=== PATIENT | female | born 1950 | race Caucasian/White ===

== ENCOUNTER 2020-01-24 13:57 | Emergency (ER) | payer MEDICARE ==
--- NOTE | 2020-01-24 15:09 | EDM.PDOC ---
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 Roa is a 69 YO female that presents to the ED for a injury to the left forehead. She was working in the yard yesterday when family members began playing by sliding a hanging zoe flower basket across a clothes line. Flower pot struck her just above her left eye. Immediately after being injured she experienced pain in the effected location, had blurred vision, and was "dazed". Today, she complains of aching pain in the forehead radiating down to the left ear and a "cloudy vision in left eye." History of injury to forehead one year ago when she fell getting out of bed and struck a window sill. This incidence caused a large hematoma and a fracture in her skull. Provider at that time told her to seek medical attention if another injury to head occurred. Denies loss of consciousness at any time since the recent injury, nausea, vomiting, change in hearing, tinnitus, loss of vision, headache, paresthesia, or numbness. Has taken Advil for pain relief. (Mandeep Harrell) - Related Data Allergies Allergy/AdvReac Type Severity Reaction Status Date / Time No Known Allergies Allergy Verified 01/24/20 14:36 Home Meds: Home Meds Acetaminophen/HYDROcodone [[place] 325-7.5 MG] 1 tab ASDIRECTED PRN 03/06/14 [History] Cyclobenzaprine [Flexeril] 10 mg PO Q8H PRN #20 tab 03/06/14 [Rx] Eszopiclone [Lunesta] 1 mg ASDIRECTED PRN 03/06/14 [History] Ezetimibe [Zetia] 10 mg DAILY 03/06/14 [History] LORazepam [Ativan] 1 mg ASDIRECTED PRN 03/06/14 [History] Lisinopril 5 mg DAILY 03/06/14 [History] Social & Family History - Tobacco Use Smoking Status *Q: Never Smoker - Recreational Drug Use Recreational Drug Use: No <Mandeep Harrell - Last Filed: 01/24/20 14:55> ED ROS GENERAL - Review of Systems Review Of Systems: See Below HEENT: Reports: Ear Pain, Eye Pain, Vision Change. Denies: Hearing Loss Cardiovascular: Denies: Lightheadedness Musculoskeletal: Reports: Other (Pain in left forehead. ) Neurological: Denies: Confusion, Dizziness, Headache, Numbness, Paresthesia, Syncope, Tingling, Trouble Speaking, Difficulty Walking, Weakness, Change in S peech <Mandeep Harrell - Last Filed: 01/24/20 14:55> ED EXAM, HEAD INJURY - Physical Exam Exam: See Below Exam Limited By: No Limitations General Appearance: Alert, No Apparent Distress Head: Atraumatic, Normocephalic Eyes: Left Eye: Vision Changes, Bilateral Eye: PERRL Neck: Non-Tender, Full Range of Motion Respiratory: No Respiratory Distress, Lungs Clear, Normal Breath Sounds Cardiovascular: Regular Rate, Rhythm, No Gallop, No Murmur, No Rub Skin: Normal Color, Warm/Dry - [place] Coma Score Best Eye Response ([place]): (4) Open Spontaneously Best Verbal Response ([place]): (5) Oriented Best Motor Response ([place]): (6) Obeys Commands <Mandeep Harrell - Last Filed: 01/24/20 14:55> Course <Marycarmen Ro - Last Filed: 01/24/20 15:59> - Vital Signs Last Recorded V/S: Last Vital Signs Temp 96.9 F 01/24/20 14:33 Pulse 94 01/24/20 14:33 Resp 16 01/24/20 14:33 BP 164/95 H 01/24/20 14:33 Pulse Ox 95 01/24/20 14:33 - Re-Assessments/Exams Free Text/Narrative Re-Assessment/Exam: 01/24/20 15:25 I have read and reviewed the student's HPI and examined the patient and agree with JARRETT Bowles-student. We will obtain a head CT without contrast for further evaluation. Although I suspect everything to be within normal limits. 01/24/20 15:[address] is negative for any acute abnormalities. Pt will be discharged with general recommendations. (Marycarmen Ro) Departure <Mandeep Harrell - Last Filed: 01/24/20 14:55> - Departure Time of Disposition: 15:38 Condition: Good - Discharge Information *PRESCRIPTION DRUG MONITORING PROGRAM REVIEWED*: No *COPY OF PRESCRIPTION DRUG MONITORING REPORT IN PATIENT KEYLA: No <Marycarmen Ro - Last Filed: 01/24/20 15:59> - Departure Disposition: Home, Self-Care 01 Clinical Impression: Head injury Qualifiers: Encounter type: initial encounter Qualified Code(s): S09.90XA - Unspecified injury of head, initial encounter - Discharge Information Instructions: Head Injury, Adult, [id number] Referrals: Adriana Singh NP [Primary Care Provider] - Forms: ED Department Discharge Additional Instructions: You were evaluated in the ER today for your head injury. A CT was obtained, and demonstrated no acute abnormalities, you are not suffering from a head bleed, and there were no acute fractures identified. You may use Tylenol/ibuprofen every 6 hours as needed for further pain management. Please follow-up with your primary care provider, for further evaluation/management if warranted, or if symptoms do not seem to be getting better in a conservative amount of time. Please return to the ER at any time if symptoms change or worsen. Sepsis Event Note (ED) - Evaluation Sepsis Screening Result: No Definite Risk <Mandeep Harrell - Last Filed: 01/24/20 14:55> - Focused Exam Vital Signs: Vital Signs Temp Pulse Resp BP Pulse Ox 01/24/20 14:33 96.9 F 94 16 164/95 H 95
--- NOTE | 2020-01-24 15:55 | CT ---
Head CT Technique: Multiple axial sections through the brain were obtained. Intravenous contrast was not utilized. Comparison: No prior intracranial imaging is available. Findings: Ventricles along with basal cisterns and sulci over the convexities are within normal limits for the patient's age. No abnormal parenchymal densities are seen. No evidence of intracranial hemorrhage. No midline shift or mass-effect is seen. Bone window settings were reviewed. Visualized paranasal sinuses and mastoid sinuses are clear. No acute calvarial finding is seen. Impression: 1. Nothing acute is seen on noncontrast head CT exam. Diagnostic code #1 This report was dictated in MDT
== END 2020-01-24 16:05 | disposition home or self-care (01) ==
LOC: JD.ED 13:57
DX: S09.90XA Unspecified injury of head, initial encounter (principal); Z79.899 Other long term (current) drug therapy; W22.8XXA Striking against or struck by other objects, initial encounter
CPT/HCPCS: 70450; 70450-26; 99282; 99283-25

== ENCOUNTER 2020-02-14 12:46 | Emergency (ER) | payer MEDICARE ==
--- NOTE | 2020-02-14 13:26 | EDM.PDOC ---
ED HPI GENERAL MEDICAL PROBLEM - General Chief Complaint: Lower Extremity Injury/Pain Stated Complaint: RT FOOT INJURY Time Seen by Provider: 02/14/20 13:08 Source of Information: Reports: Patient, RN Notes Reviewed History Limitations: Reports: No Limitations - History of Present Illness INITIAL COMMENTS - FREE TEXT/NARRATIVE: Patient is a 69-year-old female who presents to the ED for evaluation of a right foot injury. She notes around 3 days ago, she was working out and ended up dropping a 15 pound weight on the top of her right foot. She did appreciate some swelling and bruising to the area, to the top and the lateral aspect of the foot, and she was able to bear weight with little pain at all. She denies any increasing numbness and tingling, but states she does have history of neuropathy, but does not recount this being worse than normal. She has been icing and elevating the foot, and again has not had any increasing pain with walking or movement of the foot at all. She became concerned however because the coloration seem to have worsened, but the swelling got a little bit better. She did take 2 tablets of ibuprofen roughly 1 hour prior to arrival to the ER. Otherwise patient denies any sick-like symptoms, fever/chills, nausea/vomiting/diarrhea, cough/shortness of breath. - Related Data Allergies Allergy/AdvReac Type Severity Reaction Status Date / Time No Known Allergies Allergy Verified 01/24/20 14:36 Home Meds: Home Meds Acetaminophen/HYDROcodone [[place] 325-7.5 MG] 1 tab ASDIRECTED PRN 03/06/14 [History] Cyclobenzaprine [Flexeril] 10 mg PO Q8H PRN #20 tab 03/06/14 [Rx] Eszopiclone [Lunesta] 1 mg ASDIRECTED PRN 03/06/14 [History] Ezetimibe [Zetia] 10 mg DAILY 03/06/14 [History] LORazepam [Ativan] 1 mg ASDIRECTED PRN 03/06/14 [History] Lisinopril 5 mg DAILY 03/06/14 [History] Past Medical History HEENT History: Reports: Impaired Vision Cardiovascular History: Reports: High Cholesterol, Hypertension Gastrointestinal History: Reports: Other (See Below) Other Gastrointestinal History: hernia Neurological History: Reports: Neuropathy, Peripheral - Past Surgical History HEENT Surgical History: Reports: Tonsillectomy GI Surgical History: Reports: Appendectomy Female Surgical History: Reports: Breast Biopsy Review of Systems - Review of Systems Review Of Systems: Comprehensive ROS is negative, except as noted in HPI. ED EXAM, GENERAL - Physical Exam Exam: See Below Exam Limited By: No Limitations General Appearance: Alert, WD/WN, No Apparent Distress Respiratory/Chest: No Respiratory Distress, Lungs Clear, Normal Breath Sounds, No Accessory Muscle Use, Chest Non-Tender Cardiovascular: Normal Peripheral Pulses, Regular Rate, Rhythm, No Murmur Peripheral Pulses: 2+: Dorsalis Pedis (L), Dorsalis Pedis (R) Extremities: Normal Range of Motion, Normal Capillary Refill, Other (R dorsal foot has 2+ edema, with moderate amount of bruising noted to the the dorsum and lateral aspect of the foot.) Neurological: Alert, Oriented, Normal Cognition, No Motor/Sensory Deficits Psychiatric: Normal Affect, Normal Mood Skin Exam: Warm, Dry, Intact, No Rash, Ecchymosis (to dorsum and lateral aspect of right foot) Course - Vital Signs Last Recorded V/S: Last Vital Signs Temp 97.0 F 02/14/20 13:04 Pulse 123 H 02/14/20 13:04 Resp 18 02/14/20 13:04 BP 141/104 H 02/14/20 13:04 Pulse Ox 98 02/14/20 13:04 - Orders/Labs/Meds Orders: Active Orders 24 hr Category Date Time Status DME for Discharge [COMM] Routine Oth 02/14/20 14:01 Ordered - Re-Assessments/Exams Free Text/Narrative Re-Assessment/Exam: 02/14/20 13:25 Patient presents to the ED for evaluation of her right foot injury. X-rays will be obtained at this time. States she did take some ibuprofen prior to coming here, so it is not overly painful, is not requesting any pain medications at this time. 02/14/20 14:01 X-rays demonstrated a questionable fracture within the base of the proximal phalanx of the fifth toe. Please correlate if the patient is symptomatic to this area. Slight degenerative change and soft tissue swelling also noted. On exam patient was tender in this area of her foot. I did consult with Dr. Owens, he states to stick her in a postop shoe and weight-bear as tolerated, she may follow-up in a couple weeks, if is not much better. He states that looking at the images, there is no indication for surgical management. She will likely heal just fine. I will discharge her with this information, and have her follow-up as needed if it is warranted. Departure - Departure Time of Disposition: 14:02 Disposition: Home, Self-Care 01 Condition: Good Clinical Impression: Fracture of toe of right foot Qualifiers: Encounter type: initial encounter Toe: lesser toe Fracture type: closed Phalanx: proximal Fracture alignment: nondisplaced Qualified Code(s): S92.514A - Nondisplaced fracture of proximal phalanx of right lesser toe(s), initial encounter for closed fracture - Discharge Information *PRESCRIPTION DRUG MONITORING PROGRAM REVIEWED*: No *COPY OF PRESCRIPTION DRUG MONITORING REPORT IN PATIENT KEYLA: No Instructions: Toe Fracture, [id number] Referrals: Adriana Singh NP [Primary Care Provider] - Forms: ED Department Discharge Additional Instructions: You have been evaluated in the ED for your right foot injury. Your x-ray demonstrated a possible fracture of the base of the 5th (pinky) toe of your right foot. You have been given a postop shoe, you may also bear weight as tolerated. This will likely heal well, with conservative management. Please use ice as tolerated to the affected area. Please try to elevate the affected area to relieve swelling. You may take Tylenol 500 mg or ibuprofen 600mg q6 hrs for pain relief. Please do so until you have a tolerable level of pain with activity. Do not exceed 4000mg Tylenol or 3200mg ibuprofen in a 24 hour time period. If your foot is not feeling much better in a few weeks time, recommend you follow-up with Dr. Owens, or orthopedic surgeon for further management. His phone number is [phone]. Please return to ED if your symptoms should change or worsen. Sepsis Event Note (ED) - Evaluation Sepsis Screening Result: No Definite Risk - Focused Exam Vital Signs: Vital Signs Temp Pulse Resp BP Pulse Ox 02/14/20 13:04 97.0 F 123 H 18 141/104 H 98 - My Orders Last 24 Hours: My Active Orders 02/14/20 14:01 DME for Discharge [COMM] Routine - Assessment/Plan Last 24 Hours: My Active Orders 02/14/20 14:01 DME for Discharge [COMM] Routine
--- NOTE | 2020-02-14 13:44 | CR ---
Right foot: 4 views right foot were obtained. Comparison: No previous foot study. Slight degenerative change is noted within the first MTP joint. Soft tissue swelling is noted within the dorsum of the foot. Minimal spur at the attachment of the Achilles tendon to the calcaneus. Slight irregularity within the base of the proximal phalanx fifth toe is seen possibly due to fracture if patient has correlating symptoms. No additional abnormality is appreciated. Impression: 1. Questionable fracture within the base of the proximal phalanx of fifth toe. Please correlate if patient is symptomatic to this area. 2. Slight degenerative change and soft tissue swelling. Diagnostic code #3 Study was dictated in MDT
== END 2020-02-14 14:38 | disposition home or self-care (01) ==
LOC: JD.ED 12:46
DX: S92.511A Displaced fracture of proximal phalanx of right lesser toe(s), initial encounter for closed fracture (principal); E78.00 Pure hypercholesterolemia, unspecified; I10 Essential (primary) hypertension; Z90.49 Acquired absence of other specified parts of digestive tract; W20.8XXA Other cause of strike by thrown, projected or falling object, initial encounter
CPT/HCPCS: 73630-26-RT; 73630-RT; 99282; 99283-25

== ENCOUNTER 2020-02-23 18:41 | Emergency (ER) | payer MEDICARE ==
--- NOTE | 2020-02-23 19:32 | EDM.PDOC ---
ED HPI GENERAL MEDICAL PROBLEM - General Chief Complaint: Head Injury Stated Complaint: HEAD INJURY Time Seen by Provider: 02/23/20 19:12 Source of Information: Reports: Patient, RN Notes Reviewed History Limitations: Reports: No Limitations - History of Present Illness INITIAL COMMENTS - FREE TEXT/NARRATIVE: Patient is a 69-year-old female who presents to the ED for the evaluation of a head injury. Patient notes that roughly 30 minutes prior to arrival to the ER, she was walking in her room, and got her feet entangled in some towels on the floor, and she fell forward and hit her forehead on the dresser and then onto the floor. She states she hit pretty hard, and she did not lose consciousness. She has no loose teeth, no blurred vision or double vision, she states she has not noticed any blood from the ears or any clear liquid from the ears, or any bloody nose. Patient's not on any blood thinners. She is alert and oriented x3, and has no obvious neurological deficits noted. She has not taken anything for pain medication. She does have quite a large hematoma to the left side of her forehead. Other than these injuries, she denies any fevers or chills, coug h/shortness of breath, nausea/vomiting/diarrhea. She does complain of a mild headache in the region of the injury. Headache Pain Score (Numeric/FACES): 8 - Related Data Allergies Allergy/AdvReac Type Severity Reaction Status Date / Time No Known Allergies Allergy Verified 02/23/20 19:14 Home Meds: Home Meds Acetaminophen/HYDROcodone [[place] 325-7.5 MG] 1 tab ASDIRECTED PRN 03/06/14 [History] Cyclobenzaprine [Flexeril] 10 mg PO Q8H PRN #20 tab 03/06/14 [Rx] Eszopiclone [Lunesta] 1 mg ASDIRECTED PRN 03/06/14 [History] Ezetimibe [Zetia] 10 mg DAILY 03/06/14 [History] LORazepam [Ativan] 1 mg ASDIRECTED PRN 03/06/14 [History] Lisinopril 5 mg DAILY 03/06/14 [History] Acetaminophen/HYDROcodone [[place] 325-5 MG] 1 tab PO Q6H PRN #15 tablet 08/21/20 [Rx] Past Medical History HEENT History: Reports: Impaired Vision Cardiovascular History: Reports: High Cholesterol, Hypertension Respiratory History: Reports: None Gastrointestinal History: Reports: Other (See Below) Other Gastrointestinal History: hernia 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 Musculoskeletal History: Reports: Fracture Neurological History: Reports: Neuropathy, Peripheral Psychiatric History: Reports: None Endocrine/Metabolic History: Reports: Obesity/BMI 30+ Hematologic History: Reports: None Immunologic History: Reports: None Oncologic (Cancer) History: Reports: None Dermatologic History: Reports: None - Infectious Disease History Infectious Disease History: Reports: None - Past Surgical History HEENT Surgical History: Reports: Tonsillectomy GI Surgical History: Reports: Appendectomy Female Surgical History: Reports: Breast Biopsy Social & Family History - Tobacco Use Smoking Status *Q: Never Smoker - Caffeine Use Caffeine Use: Reports: Coffee - Recreational Drug Use Recreational Drug Use: No ED ROS GENERAL - Review of Systems Review Of Systems: Comprehensive ROS is negative, except as noted in HPI. ED EXAM, HEAD INJURY - Physical Exam Exam: See Below Exam Limited By: No Limitations General Appearance: Alert, WD/WN, No Apparent Distress Head: Facial Ecchymosis (Left frontal hematoma/ecchymosis of forehead; this is roughly the size of a prune.), Facial Tenderness (in the area of hematoma). No: Facial Lacerations, Raccoon Eyes Nexus Criteria: No: Posterior, Midline Cervical Tenderness, Evidence of Intoxication, Altered Level of Consciousness, Focal Neurological Deficit, Painful Distraction Injuries Eyes: Right Eye: Other (cataract), Bilateral Eye: EOMI, Normal Inspection, PERRL Ears: Normal External Exam, Normal Canal, Hearing Grossly Normal, Normal TMs Nose: Normal Inspection, Normal Mucousa, No Blood Throat/Mouth: Normal Inspection, Normal Lips, Normal Teeth, Normal Gums, Normal Voice, No Airway Compromise, Dental Abscess Neck: Non-Tender, Full Range of Motion, Normal Alignment, Normal Inspection Respiratory: No Respiratory Distress, Lungs Clear, Normal Breath Sounds, No Accessory Muscle Use, Chest Non-Tender Cardiovascular: Normal Peripheral Pulses, Regular Rate, Rhythm, No Murmur Extremities: Normal Inspection, Normal Capillary Refill 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 As Tested, No Motor/Sensory Deficits, Alert, Normal Mood/Affect, Oriented x 3 Skin: Normal Color, Warm/Dry - [place] Coma Score Best Eye Response ([place]): (4) Open Spontaneously Best Verbal Response ([place]): (5) Oriented Best Motor Response ([place]): (6) Obeys Commands [place] Total: 15 Course - Vital Signs Last Recorded V/S: Last Vital Signs Temp 97.6 F 02/23/20 19:11 Pulse 127 H 02/23/20 19:11 Resp 16 02/23/20 19:11 BP 134/78 02/23/20 19:11 Pulse Ox 97 02/23/20 19:11 - Orders/Labs/Meds Meds: Medications Discontinued Medications Generic Name Dose Route Start Last Admin Trade Name Freq PRN Reason Stop Dose Admin Hydrocodone Bitart/Acetaminophen 2 tab 02/23/20 20:55 [place] 325-5 Mg PO 02/23/20 20:56 ONETIME ONE - Re-Assessments/Exams Free Text/Narrative Re-Assessment/Exam: 02/23/20 19:31 Patient presents to the ED for her head injury. Will perform head CT to r/o fracture or bleed. I suspect it to be negative. 02/23/20 20:[address] has been performed, official radiology read is pending. Myself and Dr. Platt cannot appreciate any acute abnormalities. Nonetheless we will await official radiology read before we discharge patient home. She states that she i s having increased pain. We will get her some pain medication and have her monitor her symptoms at home. 02/23/20 21:11 Scalp hematoma is noted within the left frontal scalp, otherwise no acute intr acranial abnormalities appreciated per radiology. Patient will be discharged home with general recommendations. Departure - Departure Time of Disposition: 21:02 Disposition: Home, Self-Care 01 Condition: Good Clinical Impression: Head injury Qualifiers: Encounter type: initial encounter Qualified Code(s): S09.90XA - Unspecified injury of head, initial encounter - Discharge Information Prescriptions: Acetaminophen/HYDROcodone [[place] 325-5 MG] 1 tab PO Q6H PRN #15 tablet PRN Reason: Pain Instructions: Facial or Scalp Contusion, [id number], Head Injury, Adult, [id number] Referrals: Adriana Singh NP [Primary Care Provider] - Forms: ED Department Discharge Additional Instructions: You were evaluated in the ER today for your head injury. Your head CT demonstrated no acute changes or abnormalities. You may take 600 mg ibuprofen or 500 mg Tylenol every 6 hours as needed for further pain relief. You were given a prescription for a strong pain medication, hydrocodone/acetaminophen 5/325 mg, please take 1 tab every 6 hours as needed for pain not relieved by Tylenol or ibuprofen alone. Please note this medication does contain Tylenol in it, so do not take more than 4000 mg in a 24- hour time span. These medications can be addictive, so please take as few as possible to achieve adequate pain control. These meds can also be quite constipating, recommend that you increase your oral fluid intake and take a stool softener like MiraLAX while taking these medications. Do not drive while taking this medication. You may use ice to the area, to help relieve some of the swelling. Do not be surprised if the bruise grows, and settles downward on your face due to gravity. Please return to the ER at any time if symptoms change or worsen. Sepsis Event Note (ED) - Evaluation Sepsis Screening Result: No Definite Risk - Focused Exam Vital Signs: Vital Signs Temp Pulse Resp BP Pulse Ox 02/23/20 19:11 97.6 F 127 H 16 134/78 97
[2020-02-23] MEDS ORDERED: Acetaminophen/HYDROcodone 325-5 MG Tab PO ONE (20:55)
--- NOTE | 2020-02-23 21:08 | CT ---
Head CT Technique: Multiple axial sections through the brain were obtained. Intravenous contrast was not utilized. Comparison: Prior head CT study of 01/24/20. Findings: Ventricles along with basal cisterns and sulci of the convexities are within normal limits for the patient's age. No abnormal parenchymal densities are seen. No evidence of intracranial hemorrhage. No midline shift or mass-effect is seen. Soft tissue hematoma is noted within the left frontal scalp. Bone window settings shows no acute calvarial finding. Visualized mastoid sinuses and paranasal sinuses show nothing acute. Impression: 1. Scalp hematoma as noted above. 2. No acute intracranial abnormality is appreciated. Diagnostic code #2 This report was dictated in MDT
== END 2020-02-23 21:50 | disposition home or self-care (01) ==
LOC: JD.ED 18:41
DX: S00.83XA Contusion of other part of head, initial encounter (principal); S09.90XA Unspecified injury of head, initial encounter; I10 Essential (primary) hypertension; E66.9 Obesity, unspecified; E78.00 Pure hypercholesterolemia, unspecified; Z90.49 Acquired absence of other specified parts of digestive tract; Z79.899 Other long term (current) drug therapy; W01.198A Fall on same level from slipping, tripping and stumbling with subsequent striking against other object, initial encounter
CPT/HCPCS: 70450; 99283; A9270

== ENCOUNTER 2020-04-09 11:22 | Emergency (ER) | payer MEDICARE ==
[2020-04-09] MEDS ORDERED: Ondansetron 4 MG/2 ML SDV IVPUSH ONE (11:55)
[2020-04-09] MEDS ORDERED: HYDROmorphone 1 MG/ML Syringe IVPUSH STA (11:55)
[2020-04-09] MEDS ORDERED: Sodium Chloride 0.9% 1,000 ML IV SCH (12:00)
--- NOTE | 2020-04-09 12:40 | EDM.PDOC ---
ED HPI GENERAL MEDICAL PROBLEM - General Chief Complaint: Abdominal Pain Stated Complaint: FEVER/ABDOMINAL PAIN Time Seen by Provider: 04/09/20 11:43 Source of Information: Reports: Patient, RN Notes Reviewed History Limitations: Reports: No Limitations - History of Present Illness INITIAL COMMENTS - FREE TEXT/NARRATIVE: Patient is a 69-year-old female who presents to the ED for evaluation of her fever and abd pain. The patient notes this started roughly 2 days ago, she is pointing to her mid abdomen around her belt line near her bellybutton. She states it kind of feels like a band across her belly. 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 She still retains her gallbladder. She is complaining of a fever yesterday, and her temperature at time of triage is 99.6 F. She did take Tylenol around 3 hours ago. She notes this to be a sharp stabbing pain, and it seems to be worse with movement. She did have a bowel movement yesterday morning. She is also complaining of a headache, but no cough or shortness of breath, she has had no nausea/vomiting/diarrhea. She has not been around anyone that she is known to be sick, but she does get infusions in [place], and she is not sure if any of those people have had any issues. She thought maybe she could have had some light symptoms of UTI as in dysuria frequency/urgency, but this seems to have gotten better. Lower Abdomen Pain Score (Numeric/FACES): 8 - Related Data Allergies Allergy/AdvReac Type Severity Reaction Status Date / Time No Known Allergies Allergy Verified 04/09/20 11:48 Home Meds: Home Meds Cyclobenzaprine [Flexeril] 10 mg PO Q8H PRN #20 tab 03/06/14 [Rx] Eszopiclone [Lunesta] 1 mg ASDIRECTED PRN 03/06/14 [History] Ezetimibe [Zetia] 10 mg DAILY 03/06/14 [History] LORazepam [Ativan] 1 mg ASDIRECTED PRN 03/06/14 [History] Lisinopril 5 mg DAILY 03/06/14 [History] Cefdinir [Omnicef] 300 mg PO BID 7 Days #14 cap 04/09/20 [Rx] Past Medical History HEENT History: Reports: Impaired Vision Cardiovascular History: Reports: High Cholesterol, Hypertension Respiratory History: Reports: None Gastrointestinal History: Reports: Other (See Below) Other Gastrointestinal History: hernia 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 Musculoskeletal History: Reports: Fracture Neurological History: Reports: Neuropathy, Peripheral Psychiatric History: Reports: None Endocrine/Metabolic History: Reports: Obesity/BMI 30+ Hematologic History: Reports: None Immunologic History: Reports: None Oncologic (Cancer) History: Reports: None Dermatologic History: Reports: None - Infectious Disease History Infectious Disease History: Reports: Chicken Pox, Influenza, Measles, Shingles - Past Surgical History HEENT Surgical History: Reports: Tonsillectomy GI Surgical History: Reports: Appendectomy Female Surgical History: Reports: Breast Biopsy Social & Family History - Tobacco Use Smoking Status *Q: Never Smoker - Caffeine Use Caffeine Use: Reports: Coffee - Recreational Drug Use Recreational Drug Use: No ED ROS GENERAL - Review of Systems Review Of Systems: Comprehensive ROS is negative, except as noted in HPI. ED EXAM, GI/ABD - Physical Exam Exam: See Below Exam Limited By: No Limitations General Appearance: Alert, WD/WN, No Apparent Distress Respiratory/Chest: No Respiratory Distress, Lungs Clear, Normal Breath Sounds, No Accessory Muscle Use, Chest Non-Tender Cardiovascular: Normal Peripheral Pulses, Regular Rate, Rhythm, No Murmur GI/Abdominal Exam: Normal Bowel Sounds, Soft, No Distention, No Mass, Tender (mainly around her umbilicus) Back Exam: Normal Inspection, Full Range of Motion. No: CVA Tenderness (L), CVA Tenderness (R) Extremities: Normal Inspection, Normal Capillary Refill Neurological: Alert, Oriented, Normal Cognition, No Motor/Sensory Deficits Psychiatric: Normal Affect, Normal Mood Skin Exam: Warm, Dry, Intact, Normal Color, No Rash Course - Vital Signs Last Recorded V/S: Last Vital Signs Temp 99.6 F 04/09/20 11:40 Pulse 110 H 04/09/20 11:40 Resp 13 04/09/20 11:40 BP 155/107 H 04/09/20 11:40 Pulse Ox 97 04/09/20 11:40 - Orders/Labs/Meds Orders: Active Orders 24 hr Category Date Time Status Abdomen Pelvis w Cont [CT] Stat Exams 04/09/20 11:55 Ordered CULTURE URINE [RM] Routine Lab 04/09/20 13:55 Ordered Sodium Chloride 0.9% [Normal Saline] 1,000 ml Med 04/09/20 12:00 Ordered IV ASDIRECTED Sodium Chloride 0.9% [Saline Flush] Med 04/09/20 13:16 Active 10 ml FLUSH ONETIME PRN Medication Orders Sodium Chloride (Normal Saline) 1,000 mls @ 999 mls/hr IV ASDIRECTED TASHA Last Admin: 04/09/20 12:18 Dose: 999 mls/hr Documented by: JUSTICE Sodium Chloride (Saline Flush) 10 ml FLUSH ONETIME PRN PRN Reason: IV FLUSH Last Admin: 04/09/20 14:15 Dose: 10 ml Documented by: NICOLE Labs: Laboratory Tests 04/09/20 04/09/20 04/09/20 Range/Units 12:26 12:28 13:10 WBC 12.08 H (3.98-10.04) K/mm3 RBC 4.41 (3.98-5.22) M/mm3 Hgb 13.7 (11.2-15.7) gm/dl Hct 42.1 (34.1-44.9) % MCV 95.5 H (79.4-94.8) fl MCH 31.1 (25.6-32.2) pg MCHC 32.5 (32.2-35.5) g/dl RDW Std Deviation 39.9 (36.4-46.3) fL Plt Count 179 L (182-369) K/mm3 MPV 10.7 (9.4-12.3) fl Neutrophils % (Manual) 85 H (40-60) % Band Neutrophils % 0 (0-10) % Lymphocytes % (Manual) 13 L (20-40) % Atypical Lymphs % 0 % Monocytes % (Manual) 2 (2-10) % Eosinophils % (Manual) 0 L (0.7-5.8) % Basophils % (Manual) 0 L (0.1-1.2) Platelet Estimate Adequate RBC Morph Comment Normal Sodium (136-145) mEq/L Potassium (3.5-5.1) mEq/L Chloride (98-107) mEq/L Carbon Dioxide (21-32) mEq/L Anion Gap (5-15) BUN (7-18) mg/dL Creatinine (0.55-1.02) mg/dL Est Cr Clr Drug Dosing mL/min Estimated GFR (MDRD) (>60) mL/min BUN/Creatinine Ratio (14-18) Glucose (80-115) mg/dL Calcium (8.5-10.1) mg/dL Ferritin (8-252) ng/ml Total Bilirubin (0.2-1.0) mg/dL GGT (5-55) U/L AST (15-37) U/L ALT (14-59) U/L Alkaline Phosphatase (46-116) U/L C-Reactive Protein (<1.0) mg/dL Total Protein (6.4-8.2) g/dl Albumin (3.4-5.0) g/dl Globulin gm/dL Albumin/Globulin Ratio (1-2) Lipase (73-393) U/L Urine Color Yellow (Yellow) Urine Appearance Clear (Clear) Urine pH 7.0 (5.0-8.0) Ur Specific [place] 1.020 (1.005-1.030) Urine Protein 1+ H (Negative) Urine Glucose (UA) Negative (Negative) Urine Ketones Negative (Negative) Urine Occult Blood Trace-lysed H (Negative) Urine Nitrite Negative (Negative) Urine Bilirubin Negative (Negative) Urine Urobilinogen 0.2 (0.2-1.0) Ur Leukocyte Esterase 2+ H (Negative) U Hyaline Cast (Auto) 0-5 (0-5) /lpf Urine RBC 0-5 (0-5) /hpf Urine WBC 20-30 H (0-5) /hpf Ur Epithelial Cells 0-5 (0-5) /hpf Urine Bacteria Few (FEW) /hpf Urine Mucus Few (FEW) /hpf SARS-CoV-2 RNA (MEGHAN) Negative (NEGATIVE) 04/09/20 04/09/20 Range/Units 13:10 13:10 WBC (3.98-10.04) K/mm3 RBC (3.98-5.22) M/mm3 Hgb (11.2-15.7) gm/dl Hct (34.1-44.9) % MCV (79.4-94.8) fl MCH (25.6-32.2) pg MCHC (32.2-35.5) g/dl RDW Std Deviation (36.4-46.3) fL Plt Count (182-369) K/mm3 MPV (9.4-12.3) fl Neutrophils % (Manual) (40-60) % Band Neutrophils % (0-10) % Lymphocytes % (Manual) (20-40) % Atypical Lymphs % % Monocytes % (Manual) (2-10) % Eosinophils % (Manual) (0.7-5.8) % Basophils % (Manual) (0.1-1.2) Platelet Estimate RBC Morph Comment Sodium 137 (136-145) mEq/L Potassium 4.0 (3.5-5.1) mEq/L Chloride 102 (98-107) mEq/L Carbon Dioxide 25 (21-32) mEq/L Anion Gap 14.0 (5-15) BUN 16 (7-18) mg/dL Creatinine 0.8 (0.55-1.02) mg/dL Est Cr Clr Drug Dosing 66.95 mL/min Estimated GFR (MDRD) > 60 (>60) mL/min BUN/Creatinine Ratio 20.0 H (14-18) Glucose 116 H (80-115) mg/dL Calcium 8.6 (8.5-10.1) mg/dL Ferritin 120 (8-252) ng/ml Total Bilirubin 0.4 (0.2-1.0) mg/dL GGT 68 H (5-55) U/L AST 12 L (15-37) U/L ALT 25 (14-59) U/L Alkaline Phosphatase 49 (46-116) U/L C-Reactive Protein <0.2 (<1.0) mg/dL Total Protein 6.6 (6.4-8.2) g/dl Albumin 3.5 (3.4-5.0) g/dl Globulin 3.1 gm/dL Albumin/Globulin Ratio 1.1 (1-2) Lipase 228 (73-393) U/L Urine Color (Yellow) Urine Appearance (Clear) Urine pH (5.0-8.0) Ur Specific [place] (1.005-1.030) Urine Protein (Negative) Urine Glucose (UA) (Negative) Urine Ketones (Negative) Urine Occult Blood (Negative) Urine Nitrite (Negative) Urine Bilirubin (Negative) Urine Urobilinogen (0.2-1.0) Ur Leukocyte Esterase (Negative) U Hyaline Cast (Auto) (0-5) /lpf Urine RBC (0-5) /hpf Urine WBC (0-5) /hpf Ur Epithelial Cells (0-5) /hpf Urine Bacteria (FEW) /hpf Urine Mucus (FEW) /hpf SARS-CoV-2 RNA (MEGHAN) (NEGATIVE) Meds: Medications Generic Name Dose Route Start Last Admin Trade Name Freq PRN Reason Stop Dose Admin Sodium Chloride 1,000 mls @ 999 mls/hr 04/09/20 12:00 04/09/20 12:18 Normal Saline IV 999 mls/hr ASDIRECTED TASHA Administration Sodium Chloride 10 ml 04/09/20 13:16 04/09/20 14:15 Saline Flush FLUSH 10 ml ONETIME PRN Administration IV FLUSH Discontinued Medications Generic Name Dose Route Start Last Admin Trade Name Freq PRN Reason Stop Dose Admin Diatrizoate Meglum/Diatrizoate Sod 120 ml 04/09/20 13:16 04/09/20 14:15 Gastrografin 37% PO 04/09/20 13:17 90 ml ONETIME ONE Administration Hydromorphone HCl 1 mg 04/09/20 11:55 04/09/20 12:18 Dilaudid IVPUSH 04/09/20 11:56 1 mg ONETIME STA Administration Iopamidol 100 ml 04/09/20 13:16 04/09/20 14:15 Isovue-300 (61%) IVPUSH 04/09/20 13:17 100 ml ONETIME ONE Administration Ondansetron HCl 4 mg 04/09/20 11:55 04/09/20 12:19 Zofran IVPUSH 04/09/20 11:56 4 mg ONETIME ONE Administration - Re-Assessments/Exams Free Text/Narrative Re-Assessment/Exam: 04/09/20 12:45 Patient presents to the ED for evaluation of her fever and abdomen pain. She will get basic labs, IV fluids, some pain medications, nausea medication, and a in-house coronavirus test, just in case she is a surgical candidate, and to evaluate for coronavirus status in nature. The patient's white blood cell count mildly elevated at 12.08, manual differential is pending. 04/09/20 13:56 Metabolic panel essentially in normal limits, lipase 228, GGT is mildly elevated at 68, urine does demonstrate 2+ leukocyte esterase, 20-30 white blood cells, no squamous epithelial cells. Her COVID test is negative. CT is being performed, will await this read, but do highly suspect pyelonephritis at this time. Urine was sent for culture at this time. 04/09/20 14:25 CT demonstrates no acute findings. Again she is most likely suffering from pyelonephritis, she did have some UTI-like symptoms a few days ago. She is also got quite a bit of stool throughout her colon, which could be causing some of the abdomen pain in her mid abdomen, as it does seem that her transverse colon does dip down in the area where she was somewhat tender. She received oral contrast here, so this should provide a laxative effect. Departure - Departure Time of Disposition: 14:48 Disposition: Home, Self-Care 01 Condition: Good Clinical Impression: Pyelonephritis, Constipation - Discharge Information *PRESCRIPTION DRUG MONITORING PROGRAM REVIEWED*: No *COPY OF PRESCRIPTION DRUG MONITORING REPORT IN PATIENT KEYLA: No Instructions: Constipation, Adult, [id number], Pyelonephritis, Adult, [id number] Referrals: Adriana Singh NP [Primary Care Provider] - Forms: ED Department Discharge Additional Instructions: You have been evaluated in the ED for your abdomen pain. Your urinalysis was consistent with an acute urinary tract infection. Your urine was sent for culture, and you will be notified if you should need a change in your antibiotic. This may take up to 48 hours to result. You have been given a prescription for cefdinir (omnicef) 300 mg twice daily x7 days. Please take the medication until it is all gone. Your pain does not get much better within 48 hours or so, you should present to your primary care doctor for reevaluation and to make sure your symptoms are getting better as expected. Your CT demonstrated no other acute abnormalities. It did show that he had a quite a bit of stool throughout your colon, which could be part of your abdomen pain. The fever is most likely due to the kidney infection or pyelonephritis. You did get oral contrast, this should help provide a bowel cleanse, you should have a few good bowel movements the next day or 2. Please increase your oral fluid intake and try to stay adequately hydrated. Please return to the ED if your symptoms change or worsen. Sepsis Event Note (ED) - Evaluation Sepsis Screening Result: Possible Sepsis Risk - Focused Exam Vital Signs: Vital Signs Temp Pulse Resp BP Pulse Ox 04/09/20 11:40 99.6 F 110 H 13 155/107 H 97 - My Orders Last 24 Hours: My Active Orders 04/09/20 11:55 Abdomen Pelvis w Cont [CT] Stat 04/09/20 12:00 Sodium Chloride 0.9% [Normal Saline] 1,000 ml IV ASDIRECTED 04/09/20 13:16 Sodium Chloride 0.9% [Saline Flush] 10 ml FLUSH ONETIME PRN 04/09/20 13:55 CULTURE URINE [RM] Routine - Assessment/Plan Last 24 Hours: My Active Orders 04/09/20 11:55 Abdomen Pelvis w Cont [CT] Stat 04/09/20 12:00 Sodium Chloride 0.9% [Normal Saline] 1,000 ml IV ASDIRECTED 04/09/20 13:16 Sodium Chloride 0.9% [Saline Flush] 10 ml FLUSH ONETIME PRN 04/09/20 13:55 CULTURE URINE [RM] Routine
[2020-04-09] MEDS ORDERED: Diatrizoate Meglumine/Diatrizoate Sodium 37% 120 ML Bottle PO ONE (13:16)
[2020-04-09] MEDS ORDERED: Iopamidol 612 MG/ML 100 ML Bottle IVPUSH ONE (13:16)
[2020-04-09] MEDS ORDERED: Sodium Chloride 0.9% 10 ML Syringe FLUSH PRN (13:16)
--- NOTE | 2020-05-07 16:49 | CT ---
PROCEDURE INFORMATION: Exam: CT Abdomen And Pelvis With Contrast Exam date and time: 04/09/2020 1:04 PM Age: 69 years old Clinical indication: Abdominal pain; Patient HX: Upper abd pain TECHNIQUE: Imaging protocol: Computed tomography of the abdomen and pelvis with intravenous contrast. Radiation optimization: All CT scans at this facility use at least one of these dose optimization techniques: automated exposure control; mA and/or kV adjustment per patient size (includes targeted exams where dose is matched to clinical indication); or iterative reconstruction. COMPARISON: No relevant prior studies available. FINDINGS: Mediastinal space: Small hiatal hernia Liver: Punctate low-density lesions in the liver too small to characterize Gallbladder and bile ducts: Normal. No calcified stones. No ductal dilation. Pancreas: Normal. No ductal dilation. Spleen: Normal. No splenomegaly. Adrenals: Normal. No mass. Kidneys and ureters: Normal. No hydronephrosis. Stomach and bowel: There are scattered diverticuli in the distal colon. Pericolonic fat planes are preserved. Bowel gas pattern is nonobstructive. Appendix: No evidence of appendicitis. Intraperitoneal space: Unremarkable. No free air. No significant fluid collection. Vasculature: Unremarkable. No abdominal aortic aneurysm. Lymph nodes: Unremarkable. No enlarged lymph nodes. Urinary bladder: Unremarkable as visualized. Reproductive: Unremarkable as visualized. Bones/joints: Unremarkable. No acute fracture. Soft tissues: 1.3 cm rounded density in the visualized inferior right breast. IMPRESSION: 1. Colonic diverticulosis. No CT evidence of diverticulitis. 2. Indeterminate density in right breast , possibly asymmetric breast parenchyma. Cyst and lesion are alternative considerations. Correlate with ultrasound and mammogram. Thank you for allowing us to participate in the care of your patient. Dictated and Authenticated by: Theo Martinez MD 05/07/2020 4:47 PM Central Time ([place] & [place]) BRY
== END 2020-04-09 15:30 | disposition home or self-care (01) ==
LOC: JD.ED 11:22
DX: N12 Tubulo-interstitial nephritis, not specified as acute or chronic (principal); K59.00 Constipation, unspecified; I10 Essential (primary) hypertension; G62.9 Polyneuropathy, unspecified; E66.9 Obesity, unspecified; Z68.29 Body mass index [BMI] 29.0-29.9, adult; Z20.828 Contact with and (suspected) exposure to other viral communicable diseases
CPT/HCPCS: 36415; 74177; 80053; 81001; 82728; 82977; 83690; 85007; 85027; 86140; 87086; 96361; 96374; 96375; 99284; J1170; J2405; J7030; Q9963; Q9967; U0002

== ENCOUNTER 2020-04-16 16:20 | Emergency (ER) | payer MEDICARE ==
--- NOTE | 2020-04-16 17:10 | EDM.PDOC ---
ED HPI GENERAL MEDICAL PROBLEM - General Chief Complaint: Fever Stated Complaint: FEVER/RIGHT SIDE PAIN Time Seen by Provider: 04/16/20 16:32 Source of Information: Reports: Patient History Limitations: Reports: No Limitations - History of Present Illness INITIAL COMMENTS - FREE TEXT/NARRATIVE: Patient is a 69-year-old female presenting to the emergency department with complaints of right mid abdominal pain as well as feeling feverish over the course the last 4 hours. She was seen in this emergency department 1 week ago and diagnosed with pyelonephritis. She was put on a course of cefdinir which she states she did finish. She felt that the pain in the right side of her abdomen was improving, however over the last few days it feels like it is worsening again. She denies any nausea, vomiting, or diarrhea. She states that she has been having daily or every other day bowel movements, however this is a decrease in frequency from her normal 2 bowel movements per day. She has not checked her temperature at home, however states that she felt flushed and warm. Temperature in triage is 98.1. She denies taking any antipyretics prior to coming to the ER. 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 Right Flank Pain Score (Numeric/FACES): 4 - Related Data Allergies Allergy/AdvReac Type Severity Reaction Status Date / Time No Known Allergies Allergy Verified 04/16/20 16:40 Home Meds: Home Meds Cyclobenzaprine [Flexeril] 10 mg PO Q8H PRN #20 tab 03/06/14 [Rx] Eszopiclone [Lunesta] 3 mg PO ASDIRECTED PRN 03/06/14 [History] Ezetimibe [Zetia] 10 mg PO DAILY 03/06/14 [History] LORazepam [Ativan] 1 mg PO ASDIRECTED PRN 03/06/14 [History] Lisinopril 5 mg PO DAILY 03/06/14 [History] Acetaminophen/oxyCODONE [Percocet 325-5 MG] 1 each PO Q6H PRN #12 tab 04/09/20 [Rx] Cefdinir [Omnicef] 300 mg PO BID 7 Days #14 cap 04/09/20 [Rx] Past Medical History HEENT History: Reports: Impaired Vision Cardiovascular History: Reports: High Cholesterol, Hypertension Respiratory History: Reports: None Gastrointestinal History: Reports: Other (See Below) Other Gastrointestinal History: hernia 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 Musculoskeletal History: Reports: Fracture Neurological History: Reports: Neuropathy, Peripheral Psychiatric History: Reports: Anxiety Endocrine/Metabolic History: Reports: Obesity/BMI 30+ Hematologic History: Reports: None Immunologic History: Reports: None Oncologic (Cancer) History: Reports: Breast Dermatologic History: Reports: None - Infectious Disease History Infectious Disease History: Reports: Chicken Pox, Influenza, Measles, Shingles - Past Surgical History HEENT Surgical History: Reports: Tonsillectomy, Other (See Below) Other HEENT 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 Denies: Weakness, Fatigue HEENT: Reports: No Symptoms Respiratory: Reports: No Symptoms Cardiovascular: Reports: No Symptoms Endocrine: Reports: No Symptoms GI/Abdominal: Reports: Abdominal Pain. Denies: Diarrhea, Nausea, Vomiting : Reports: No Symptoms Musculoskeletal: Reports: No Symptoms Skin: Reports: No Symptoms Neurological: Reports: No Symptoms Psychiatric: Reports: No Symptoms Hematologic/Lymphatic: Reports: No Symptoms Immunologic: Reports: No Symptoms ED EXAM, GENERAL - Physical Exam Exam: See Below General Appearance: Alert, WD/WN, No Apparent Distress Respiratory/Chest: No Respiratory Distress, Lungs Clear, Normal Breath Sounds, No Accessory Muscle Use, Chest Non-Tender Cardiovascular: Normal Peripheral Pulses, Regular Rate, Rhythm, No Edema, No Gallop, No JVD, No Murmur, No Rub GI/Abdominal: Normal Bowel Sounds, Soft, No Organomegaly, No Distention, No Abnormal Bruit, No Mass, Tender (right mid-abdomen) Neurological: Alert, Oriented, CN II-XII Intact, Normal Cognition, Normal Gait, Normal Reflexes, No Motor/Sensory Deficits Psychiatric: Normal Affect, Normal Mood Skin Exam: Warm, Dry, Intact, Normal Color, No Rash Course - Vital Signs Last Recorded V/S: Last Vital Signs Temp 98.1 F 04/16/20 16:31 Pulse 119 H 04/16/20 16:31 Resp 18 04/16/20 16:31 BP 173/99 H 04/16/20 16:31 Pulse Ox 96 04/16/20 16:31 - Orders/Labs/Meds Labs: Laboratory Tests 04/16/20 04/16/20 04/16/20 Range/Units 16:35 16:35 17:55 WBC 10.05 H (3.98-10.04) K/mm3 RBC 4.55 (3.98-5.22) M/mm3 Hgb 14.1 (11.2-15.7) gm/dl Hct 43.6 (34.1-44.9) % MCV 95.8 H (79.4-94.8) fl MCH 31.0 (25.6-32.2) pg MCHC 32.3 (32.2-35.5) g/dl RDW Std Deviation 41.7 (36.4-46.3) fL Plt Count 182 (182-369) K/mm3 MPV 10.2 (9.4-12.3) fl Neut % (Auto) 59.3 (34.0-71.1) % Lymph % (Auto) 32.8 (19.3-51.7) % [place] % (Auto) 6.7 (4.7-12.5) % Eos % (Auto) 0.6 L (0.7-5.8) Baso % (Auto) 0.1 (0.1-1.2) % Neut # (Auto) 5.96 (1.56-6.13) K/mm3 Lymph # (Auto) 3.30 (1.18-3.74) K/mm3 [place] # (Auto) 0.67 H (0.24-0.36) K/mm3 Eos # (Auto) 0.06 (0.04-0.36) K/mm3 Baso # (Auto) 0.01 (0.01-0.08) K/mm3 Manual Slide Review Normal smear Sodium 139 (136-145) mEq/L Potassium 3.8 (3.5-5.1) mEq/L Chloride 101 (98-107) mEq/L Carbon Dioxide 25 (21-32) mEq/L Anion Gap 16.8 H (5-15) BUN 16 (7-18) mg/dL Creatinine 1.0 (0.55-1.02) mg/dL Est Cr Clr Drug Dosing 47.78 mL/min Estimated GFR (MDRD) 55 (>60) mL/min BUN/Creatinine Ratio 16.0 (14-18) Glucose 110 (80-115) mg/dL Calcium 9.3 (8.5-10.1) mg/dL Total Bilirubin 0.4 (0.2-1.0) mg/dL AST 13 L (15-37) U/L ALT 24 (14-59) U/L Alkaline Phosphatase 58 (46-116) U/L C-Reactive Protein 0.3 (<1.0) mg/dL Total Protein 7.2 (6.4-8.2) g/dl Albumin 3.8 (3.4-5.0) g/dl Globulin 3.4 gm/dL Albumin/Globulin Ratio 1.1 (1-2) Lipase 123 (73-393) U/L Urine Color Yellow (Yellow) Urine Appearance Clear (Clear) Urine pH 6.0 (5.0-8.0) Ur Specific [place] 1.025 (1.005-1.030) Urine Protein Trace H (Negative) Urine Glucose (UA) Negative (Negative) Urine Ketones Negative (Negative) Urine Occult Blood Trace-intact H (Negative) Urine Nitrite Negative (Negative) Urine Bilirubin 1+ H (Negative) Urine Urobilinogen 0.2 (0.2-1.0) Ur Leukocyte Esterase Trace H (Negative) U Hyaline Cast (Auto) 0-5 (0-5) /lpf Urine RBC 5-10 H (0-5) /hpf Urine WBC 5-10 H (0-5) /hpf Ur Squamous Epith Cells 0-5 (0-5) /hpf Urine Bacteria Few (FEW) /hpf Urine Mucus Few (FEW) /hpf Meds: Medications Discontinued Medications Generic Name Dose Route Start Last Admin Trade Name Freq PRN Reason Stop Dose Admin Ketorolac Tromethamine 30 mg 04/16/20 19:11 04/16/20 19:37 Toradol IVPUSH 04/16/20 19:12 30 mg ONETIME ONE Administration Magnesium Citrate 296 ml 04/16/20 19:10 04/16/20 19:37 Citrate Of Magnesia PO 04/16/20 19:11 296 ml ONETIME ONE Administration - Re-Assessments/Exams Free Text/Narrative Re-Assessment/Exam: Patient is a 69-year-old female presenting to the emergency department with complaints of ongoing right-sided abdominal pain as well as feeling feverish, however she has not checked her temperature at home. Temperature in triage was 98.1. On review of her records from her previous visit 1 week ago, CT scan of the abdomen pelvis was completed and found to be overall normal, however there was some increased stool noted throughout the right side of her colon. Urinalysis completed that time was suspicious for infection, therefore she was treated for a pyelonephritis, however her urine culture grew out mixed monalisa consistent with contamination and showed no signs of obvious infection. Patient did finish her course of Omnicef. States that the abdominal pain improved and then worsened again, but never went away. On exam, she has some tenderness to palpation over the right mid lateral aspect of her abdomen. Right upper quadrant and right lower quadrant are nontender. She has had bowel movements daily or every other day, however she states that she used to have bowel movements twice a day so it is decreased in frequency. She denies any nausea vomiting or diarrhea. Will complete basic labs including CBC, CMP, CRP, lipase as well as urinalysis. Have ordered an abdomen flat and upright x-ray. 04/16/20 19:19 Hematology was grossly unremarkable. Urinalysis showed trace leukocyte esterase, 5-10 RBCs, 5-10 WBCs. I have sent this urine for culture as she just finished a course of Omnicef for a suspected urinary tract infection which turned out to be contamination. Abdomen flat and upright x-ray reads as follows: 1. A large amount of stool is noted throughout the colon. 2. Small air-fluid levels present within the small bowel consistent with ileus. Discussed these results with the patient. We will send her home with a bottle of magnesium citrate with instructions to drink it when she gets home. If she has a bowel movement and fails to have improvement of her symptoms or if she drinks the entire bottle and fails to have a bowel movement and still has pain, she should return for reevaluation. Patient is in agreement with this plan. Discharge instructions as documented. Departure - Departure Time of Disposition: 19:20 Disposition: Home, Self-Care 01 Condition: Good Clinical Impression: Abdominal pain Qualifiers: Abdominal location: unspecified location Qualified Code(s): R10.9 - Unspecified abdominal pain - Discharge Information *PRESCRIPTION DRUG MONITORING PROGRAM REVIEWED*: No *COPY OF PRESCRIPTION DRUG MONITORING REPORT IN PATIENT KEYLA: No Instructions: Abdominal Pain, Adult, [id number] Referrals: Adriana Singh NP [Primary Care Provider] - Forms: ED Department Discharge Additional Instructions: You were seen in the emergency department today for ongoing right-sided abdominal pain. Your work-up included blood work, urinalysis and an x-ray of your abdomen. Blood work was found to be normal. There is a small amount of bacteria in your urine. This has been sent for culture if this should grow to bacteria that requires treatment, you will be notified. X-ray of your abdomen does show a large amount of stool throughout the colon. You have been sent home with a bottle of magnesium citrate which is a laxative. Recommend that you take this entire bottle when you get home this evening. This should produce number bowel movements some of which may be loose your symptoms. If you drink a bottle of magnesium citrate and failed to have a bowel movement after 6 hours or your pain should continue or worsen despite having a bowel movement, I recommend you return to the emergency department for reevaluation. Also if you experience any new or worsening symptoms of concern, please not hesitate to return to the emergency department. Sepsis Event Note (ED) - Evaluation Sepsis Screening Result: Possible Sepsis Risk
[2020-04-16] MEDS ORDERED: Magnesium Citrate Solution 296 ML Bottle PO ONE (19:10)
[2020-04-16] MEDS ORDERED: Ketorolac 30 MG/ML SDV IVPUSH ONE (19:11)
== END 2020-04-16 19:43 | disposition home or self-care (01) ==
LOC: JD.ED 16:20
DX: R10.9 Unspecified abdominal pain (principal); E78.00 Pure hypercholesterolemia, unspecified; I10 Essential (primary) hypertension; G62.9 Polyneuropathy, unspecified; E66.9 Obesity, unspecified; Z68.32 Body mass index [BMI] 32.0-32.9, adult; Z79.899 Other long term (current) drug therapy
CPT/HCPCS: 36415; 74019; 80053; 81001; 83690; 85025; 86140; 87086; 96374; 99284; A9270; J1885

== ENCOUNTER 2020-06-14 15:10 | Emergency (ER) | payer MEDICARE ==
--- NOTE | 2020-06-14 16:10 | EDM.PDOC ---
<Deepa Christine - Last Filed: 06/14/20 16:02> ED HPI GENERAL MEDICAL PROBLEM - General Chief Complaint: Cardiovascular Problem Stated Complaint: SWEATING /HIGH BLOOD PRESS/ELEVATED HEART RATE Time Seen by Provider: 06/14/20 15:15 Source of Information: Reports: Patient History Limitations: Reports: No Limitations - History of Present Illness INITIAL COMMENTS - FREE TEXT/NARRATIVE: Patient presents to the ER, was sent here from [facility], with complaints of high blood pressure tachycardia and fever. Patient states she woke this morning with a fever she did not check it but she felt warm and her face was very flushed so she took Advil and Tylenol. She states within an hour her fever broke and she was sweating profusely. She then decided she would do her workout for the day but did notice she did not have as much strength as she normally does. She then elected to go to the clinic. When seen at the clinic she was tachycardic and her blood pressure was slightly elevated so they sent her to the emergency department. Of note patient normally takes hydrochlorothiazide and lisinopril for her blood pressure. She does not know the actual dose of her hydrochlorothiazide but she can take half or whole pill daily. Lisinopril dose is 5 mg but she can take 10 mg if needed. Today she took a whole hydrochlorothiazide this afternoon and only took 5 mg of lisinopril this morning. Blood pressure on presentation to the emergency department is 157/100 heart rate is 118. Patient denies any headache, blurred vision, dizziness, chest pain, palpitations, shortness of breath, or dizziness. Patient's only complaint is some dysuria. She states she has had 3 UTIs in the past 8 months. Was mostly recently treated 6 weeks ago with Cipro. Onset: Today - Related Data Allergies Allergy/AdvReac Type Severity Reaction Status Date / Time No Known Allergies Allergy Verified 06/14/20 15:26 Home Meds: Home Meds Cyclobenzaprine [Flexeril] 10 mg PO Q8H PRN #20 tab 03/06/14 [Rx] Eszopiclone [Lunesta] 3 mg PO ASDIRECTED PRN 03/06/14 [History] Ezetimibe [Zetia] 10 mg PO DAILY 03/06/14 [History] LORazepam [Ativan] 1 mg PO ASDIRECTED PRN 03/06/14 [History] Lisinopril 5 mg PO DAILY 03/06/14 [History] Past Medical History HEENT History: Reports: Impaired Vision Cardiovascular History: Reports: High Cholesterol, Hypertension Respiratory History: Reports: None Gastrointestinal History: Reports: Other (See Below) Other Gastrointestinal History: hernia 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 Below) Other FENCE LABORER History: cryo sx Musculoskeletal History: Reports: Fracture Neurological History: Reports: Neuropathy, Peripheral Psychiatric History: Reports: Anxiety Endocrine/Metabolic History: Reports: Obesity/BMI 30+ Hematologic History: Reports: None Immunologic History: Reports: None Oncologic (Cancer) History: Reports: Breast Dermatologic History: Reports: None - Infectious Disease History Infectious Disease History: Reports: Chicken Pox, Influenza, Measles, Shingles - Past Surgical History HEENT Surgical History: Reports: Tonsillectomy, Other (See Below) Other HEENT Surgeries/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 GI Surgical History: Reports: Appendectomy, Hernia Repair/Other Female Surgical History: Reports: Breast Biopsy, Hysterectomy, Other (See Below) Other Female Surgeries/Procedures: lumpectomy on L breast Social & Family History - Family History Family Medical History: No Pertinent Family History - Tobacco Use Tobacco Use Status *Q: Never Tobacco User Second Hand Smoke Exposure: No - Caffeine Use Caffeine Use: Reports: Coffee - Recreational Drug Use Recreational Drug Use: No ED ROS GENERAL - Review of Systems Review Of Systems: See Below Constitutional: Reports: Fever, Chills, Weakness HEENT: Reports: No Symptoms Respiratory: Reports: No Symptoms Cardiovascular: Reports: No Symptoms Endocrine: Reports: No Symptoms GI/Abdominal: Reports: No Symptoms : Reports: Dysuria Musculoskeletal: Reports: No Symptoms Skin: Reports: No Symptoms Neurological: Reports: No Symptoms Psychiatric: Reports: No Symptoms Hematologic/Lymphatic: Reports: No Symptoms Immunologic: Reports: No Symptoms ED EXAM, GENERAL - Physical Exam Exam: See Below Exam Limited By: No Limitations General Appearance: Alert, WD/WN, No Apparent Distress Eye Exam: Bilateral Eye: EOMI, PERRL Throat/Mouth: Normal Inspection, Normal Lips, Normal Voice, No Airway Compromise Head: Atraumatic, Normocephalic Neck: Normal Inspection, Supple, Non-Tender, Full Range of Motion Respiratory/Chest: No Respiratory Distress, Lungs Clear, Normal Breath Sounds, No Accessory Muscle Use, Chest Non-Tender Cardiovascular: Normal Peripheral Pulses, No Edema, Tachycardia Peripheral Pulses: 2+: Radial (L), Radial (R) GI/Abdominal: Normal Bowel Sounds, Soft, Non-Tender, No Distention (Female) Exam: Deferred Rectal (Female) Exam: Deferred Back Exam: Normal Inspection, Full Range of Motion Extremities: Normal Inspection, Normal Range of Motion, Non-Tender, No Pedal Edema, Normal Capillary Refill Neurological: Alert, Oriented, Normal Cognition, No Motor/Sensory Deficits Psychiatric: Normal Affect, Normal Mood Skin Exam: Warm, Dry, Intact, Normal Color, No Rash Lymphatic: No Adenopathy Course - Re-Assessments/Exams Free Text/Narrative Re-Assessment/Exam: 06/14/20 16:12 I have ordered a cbc, cmp, ua with micro and culture if indicated, and covid test. 06/14/20 16:13 I have reported off to Dr. Gutierrez on this patient. Departure - Departure Disposition: Home, Self-Care 01 Clinical Impression: Hypertension Qualifiers: Hypertension type: essential hypertension Qualified Code(s): I10 - Essential (primary) hypertension Referrals: Adriana Singh NP [Primary Care Provider] - Forms: ED Department Discharge Additional Instructions: Rest, Continue to drink plenty of water to maintain hydration. Continue current medications as prescribed. Return to ED as needed if symptoms worsening in any way. Sepsis Event Note (ED) - Evaluation Sepsis Screening Result: Possible Sepsis Risk <Willie Gutierrez - Last Filed: 06/14/20 18:07> Course - Vital Signs Last Recorded V/S: Last Vital Signs Temp 96.9 F 06/14/20 15:21 Pulse 118 H 06/14/20 15:21 Resp 19 06/14/20 15:21 BP 157/100 H 06/14/20 15:21 Pulse Ox 94 L 06/14/20 15:21 - Orders/Labs/Meds Orders: Active Orders 24 hr Category Date Time Status EKG Documentation Completion [RC] STAT Care 06/14/20 15:47 Active CORONAVIRUS COVID-19 PCR PHL Stat Lab 06/14/20 16:13 Received Labs: Laboratory Tests 06/14/20 06/14/20 06/14/20 Range/Units 16:05 16:13 16:13 WBC 9.36 (3.98-10.04) K/mm3 RBC 4.83 (3.98-5.22) M/mm3 Hgb 14.7 (11.2-15.7) gm/dl Hct 45.2 H (34.1-44.9) % MCV 93.6 (79.4-94.8) fl MCH 30.4 (25.6-32.2) pg MCHC 32.5 (32.2-35.5) g/dl RDW Std Deviation 43.8 (36.4-46.3) fL Plt Count 237 (182-369) K/mm3 MPV 10.2 (9.4-12.3) fl Neut % (Auto) 73.3 H (34.0-71.1) % Lymph % (Auto) 19.8 (19.3-51.7) % Hood % (Auto) 6.2 (4.7-12.5) % Eos % (Auto) 0 L (0.7-5.8) Baso % (Auto) 0.1 (0.1-1.2) % Neut # (Auto) 6.86 H (1.56-6.13) K/mm3 Lymph # (Auto) 1.85 (1.18-3.74) K/mm3 Hood # (Auto) 0.58 H (0.24-0.36) K/mm3 Eos # (Auto) 0.00 L (0.04-0.36) K/mm3 Baso # (Auto) 0.01 (0.01-0.08) K/mm3 Sodium 135 L (136-145) mEq/L Potassium 3.6 (3.5-5.1) mEq/L Chloride 99 (98-107) mEq/L Carbon Dioxide 26 (21-32) mEq/L Anion Gap 13.6 (5-15) BUN 19 H (7-18) mg/dL Creatinine 1.1 H (0.55-1.02) mg/dL Est Cr Clr Drug Dosing 43.43 mL/min Estimated GFR (MDRD) 49 (>60) mL/min BUN/Creatinine Ratio 17.3 (14-18) Glucose 140 H (80-115) mg/dL Calcium 9.5 (8.5-10.1) mg/dL Total Bilirubin 0.4 (0.2-1.0) mg/dL AST 17 (15-37) U/L ALT 27 (14-59) U/L Alkaline Phosphatase 56 (46-116) U/L Total Protein 7.5 (6.4-8.2) g/dl Albumin 4.0 (3.4-5.0) g/dl Globulin 3.5 gm/dL Albumin/Globulin Ratio 1.1 (1-2) Urine Color Yellow (Yellow) Urine Appearance Clear (Clear) Urine pH 7.0 (5.0-8.0) Ur Specific Mcgrann 1.020 (1.005-1.030) Urine Protein Negative (Negative) Urine Glucose (UA) Negative (Negative) Urine Ketones Negative (Negative) Urine Occult Blood Trace-intact H (Negative) Urine Nitrite Negative (Negative) Urine Bilirubin Negative (Negative) Urine Urobilinogen 0.2 (0.2-1.0) Ur Leukocyte Esterase Negative (Negative) Urine RBC 0-5 (0-5) /hpf Urine WBC 0-5 (0-5) /hpf Ur Squamous Epith Cells 0-5 (0-5) /hpf Urine Bacteria Few (FEW) /hpf Urine Mucus Few (FEW) /hpf - Re-Assessments/Exams Free Text/Narrative Re-Assessment/Exam: 06/14/20 18:04 Have assumed care from ANAY Marcelo. I agree with her hx and exam as documented. UA is nl. She has no cough, fever here at this time or difficulty breathing. Covid screen to go to the [facility] has been collected. Departure - Departure Time of Disposition: 18:05 Condition: Fair Sepsis Event Note (ED) - Focused Exam Vital Signs: Vital Signs Temp Pulse Resp BP Pulse Ox 06/14/20 15:21 96.9 F 118 H 19 157/100 H 94 L
== END 2020-06-14 18:17 | disposition home or self-care (01) ==
LOC: JD.ED 15:10
DX: I10 Essential (primary) hypertension (principal); R50.9 Fever, unspecified; R00.0 Tachycardia, unspecified; E66.9 Obesity, unspecified; Z68.32 Body mass index [BMI] 32.0-32.9, adult; Z90.710 Acquired absence of both cervix and uterus; Z90.49 Acquired absence of other specified parts of digestive tract; Z79.899 Other long term (current) drug therapy; Z20.828 Contact with and (suspected) exposure to other viral communicable diseases
CPT/HCPCS: 36415; 80053; 81001; 85025; 93005; 99285; U0002; 99283

== ENCOUNTER 2020-06-29 15:14 | Emergency (ER) | payer MEDICARE ==
--- NOTE | 2020-06-29 16:03 | EDM.PDOC ---
ED HPI GENERAL MEDICAL PROBLEM - General Chief Complaint: ENT Problem Stated Complaint: EAR PAIN Time Seen by Provider: 06/29/20 15:42 Source of Information: Reports: Patient History Limitations: Reports: No Limitations - History of Present Illness INITIAL COMMENTS - FREE TEXT/NARRATIVE: 69-year-old female presents to the ED with complaints of persistent right ear pain since early this morning. She denies having any recent sinus congestion or bad cold within the last month. She states the pain for the most part is sharp stabbing and constant. Only the right ear hurts. He does hurt to open and close her jaw on the right side. She denies any discharge from the ear canal. She denies any fever or chills. No sore throat. She has recently flown from [place] to [place] for the . Onset: Today, Sudden Onset Date: 06/29/20 Onset Time: 06:00 Duration: Hour(s):, Constant, Getting Worse, Other (Pain occasionally becomes very sharp and stabbing.) Location: Reports: Face (Ear pain) Quality: Reports: Ache, Sharp (Sharp and stabbing intermittently.), Stabbing Severity: Moderate Improves with: Reports: None (6 out of 10) Worsens with: Reports: None Context: Denies: Activity, Exercise, Lifting, Sick Contact, Trauma, Other Associated Symptoms: Reports: No Other Symptoms Treatments ANTHROPOLOGIST PHYSICAL: Reports: Acetaminophen Right Ear Pain Score (Numeric/FACES): 8 - Related Data Allergies Allergy/AdvReac Type Severity Reaction Status Date / Time No Known Allergies Allergy Verified 06/14/20 15:26 Home Meds: Home Meds Cyclobenzaprine [Flexeril] 10 mg PO Q8H PRN #20 tab 03/06/14 [Rx] Eszopiclone [Lunesta] 3 mg PO ASDIRECTED PRN 03/06/14 [History] Ezetimibe [Zetia] 10 mg PO DAILY 03/06/14 [History] LORazepam [Ativan] 1 mg PO ASDIRECTED PRN 03/06/14 [History] Lisinopril 5 mg PO DAILY 03/06/14 [History] Cefdinir [Omnicef] 300 mg PO BID #16 cap 06/29/20 [Rx] oxyCODONE HCl/Acetaminophen [Percocet 5-325 mg Tablet] 1 - 2 each PO Q4H PRN #10 tablet 06/29/20 [Rx] Past Medical History HEENT History: Reports: Impaired Vision Cardiovascular History: Reports: High Cholesterol, Hypertension Respiratory History: Reports: None Gastrointestinal History: Reports: Other (See Below) Other Gastrointestinal History: hernia 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 (See Below) Other CONVENTION SERVICES MANAGER History: cryo sx Musculoskeletal History: Reports: Fracture Neurological History: Reports: Neuropathy, Peripheral, Other (See Below) Other Neuro History: head injury from fall Psychiatric History: Reports: Anxiety, Other (See Below) (Chronic insomnia.) Endocrine/Metabolic History: Reports: Obesity/BMI 30+ Hematologic History: Reports: None Immunologic History: Reports: None Oncologic (Cancer) History: Reports: Breast Dermatologic History: Reports: None - Infectious Disease History Infectious Disease History: Reports: Chicken Pox, Influenza, Measles, Shingles - Past Surgical History HEENT Surgical History: Reports: Tonsillectomy, Other (See Below) Other HEENT Surgeries/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 GI Surgical History: Reports: Appendectomy, Hernia Repair/Other Female Surgical History: Reports: Breast Biopsy, Hysterectomy, Other (See Below) Other Female Surgeries/Procedures: lumpectomy on L breast Social & Family History - Family History Family Medical History: No Pertinent Family History - Tobacco Use Tobacco Use Status *Q: Never Tobacco User - Caffeine Use Caffeine Use: Reports: Coffee - Recreational Drug Use Recreational Drug Use: No - Living Situation & Occupation Living situation: Reports: Single 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 Denies: Ear Discharge (Ear pain), Throat Pain Respiratory: Reports: No Symptoms Cardiovascular: Reports: No Symptoms Endocrine: Reports: Fatigue GI/Abdominal: Reports: No Symptoms : Reports: Frequency. Denies: Incontinence Musculoskeletal: Reports: Neck Pain, Back Pain Skin: Reports: No Symptoms (Occasional occasional) Neurological: Reports: No Symptoms Psychiatric: Reports: Anxiety, Depression, Other Hematologic/Lymphatic: Reports: No Symptoms (Chronic insomnia) Immunologic: Reports: No Symptoms ED EXAM, ENT - Physical Exam Exam: See Below Exam Limited By: No Limitations General Appearance: Alert, WD/WN, No Apparent Distress, Other (Temperature is 35.9 which is likely abnormal. Heart rate 115 at the bedside. Respiratory of 18 with O2 sats of 96% room air BP 1 3590.) Eye Exam: Bilateral Eye: Normal Inspection, PERRL Ears: TM Bulging (Right side), TM Erythema, TM Obscured by Cerumen, Other (Left side right TM is partially obscured by cerumen. Visualized portion of the tympanic membrane reveals it to be erythematous and bulging.). No: Auricular Tenderness Mouth/Throat: Normal Inspection, Normal Gums, Normal Lips, Normal Teeth Course - Vital Signs Last Recorded V/S: Last Vital Signs Temp 35.9 C L 06/29/20 15:28 Pulse 115 H 06/29/20 15:28 Resp 18 06/29/20 15:28 BP 135/90 06/29/20 15:28 Pulse Ox 95 06/29/20 15:28 - Radiology Interpretation Free Text/Narrative:: 69-year-old female presents to the ED with acute onset of right ear pain that awoke her around 0600 hrs. this morning. She is not appreciated any discharge from the ear. Of note she did recently fly to [place] from [place] where she resides. She does not recall any pain upon landing to suggest barotrauma. She has not had any recent upper respiratory tract infections and no history of Covid exposure. Pain is constant with intermittent sharp stabbing pain. On exam she has evidence of cerumen impaction up against the eardrum on the left side obscuring the tympanic membrane completely. On the right side about 60% of the eardrum is obscured by cerumen. The remaining 40% is erythematous and bulging suggestive of no otitis media. Patient will therefore be treated with Motrin 600 mg every 6 hours necessary to relieve pain and inflammation. Antibiotic will be Omnicef 300 mg twice daily for the next 8 days to clear up infection.Percocet 5/325 mg tablets 1-2 every 4-6 hours necessary for acute pain relief until the antibiotic becomes effective. She is to return to medical care if she develops any signs of shingles on her face or Marie's palsy. Departure - Departure Time of Disposition: 15:59 Disposition: Home, Self-Care 01 Condition: Fair Clinical Impression: Right acute otitis media - Discharge Information *PRESCRIPTION DRUG MONITORING PROGRAM REVIEWED*: Not Applicable *COPY OF PRESCRIPTION DRUG MONITORING REPORT IN PATIENT KEYLA: Not Applicable Prescriptions: Cefdinir [Omnicef] 300 mg PO BID #16 cap oxyCODONE HCl/Acetaminophen [Percocet 5-325 mg Tablet] 1 - 2 each PO Q4H PRN #10 tablet PRN Reason: pain relief. Instructions: Otitis Media, Adult, [id number] Referrals: Adriana Snigh NP [Primary Care Provider] - Forms: ED Department Discharge Additional Instructions: Evaluation in the emergency room this afternoon in regards to development of acute right ear pain today. Examination reveals that you have a good deal of cerumen or earwax pushed up against each eardrum. The ear wax occludes the left eardrum completely. On the right I can see evidence of a early infection involving the eardrum called otitis media. You may use Motrin 600 mg every 6 hours which will help reduce pain and inflammation. Antibiotic is to be Omnicef 300 mg twice daily for 8 days to clear up infection. May use Percocet tabs 5/325 mg usually 1 every 4-6 hours necessary for pain relief until the antibiotic becomes effective which is usually 2 days. Follow-up with personal care physician if any further problems occur. Sepsis Event Note (ED) - Evaluation Sepsis Screening Result: Possible Sepsis Risk - Focused Exam Vital Signs: Vital Signs Temp Pulse Resp BP Pulse Ox 06/29/20 15:28 35.9 C L 115 H 18 135/90 95
== END 2020-06-29 16:13 | disposition home or self-care (01) ==
LOC: JD.ED 15:14
DX: H66.91 Otitis media, unspecified, right ear (principal); I10 Essential (primary) hypertension; G62.9 Polyneuropathy, unspecified; E66.9 Obesity, unspecified; Z68.32 Body mass index [BMI] 32.0-32.9, adult; Z79.899 Other long term (current) drug therapy
CPT/HCPCS: 99282

== ENCOUNTER 2020-08-19 06:23 | Emergency (ER) | payer MEDICARE ==
--- NOTE | 2020-08-19 07:44 | EDM.PDOC ---
ED HPI GENERAL MEDICAL PROBLEM - General Chief Complaint: Neurological Problem Stated Complaint: UNBALANCED Time Seen by Provider: 08/19/20 06:50 Source of Information: Reports: Patient History Limitations: Reports: No Limitations - History of Present Illness INITIAL COMMENTS - FREE TEXT/NARRATIVE: The patient presents with being unbalanced and falling. 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 She had breast cancer and needed chemotherapy. She says she was informed by her oncologist that she received to much chemo and that lead to her peripheral neuropathy. She gets around okay but the past couple of days it has been harder. She got off balance and fell on her buttocks today. She did not hit her head and she has no injuries. She denies any headache, fever, chills, cough, congestion, runny nose, chest pain, shortness of breath, abdominal pain, nausea, vomiting, numbness or weakness. Onset: Gradual Duration: Day(s): Severity: Moderate Improves with: Reports: None Worsens with: Reports: None Associated Symptoms: Reports: No Other Symptoms - Related Data Allergies Allergy/AdvReac Type Severity Reaction Status Date / Time amoxicillin [From Augmentin] Allergy Unknown Verified 08/19/20 06:36 Cephalosporins Allergy Unknown Verified 08/19/20 06:36 clavulanic acid Allergy Unknown Verified 08/19/20 06:36 [From Augmentin] gabapentin Allergy Unknown Verified 08/19/20 06:36 pregabalin Allergy Unknown Verified 08/19/20 06:36 sulfanilamide Allergy Unknown Verified 08/19/20 06:36 Home Meds: Home Meds Cyclobenzaprine [Flexeril] 10 mg PO Q8H PRN #20 tab 03/06/14 [Rx] Eszopiclone [Lunesta] 3 mg PO ASDIRECTED PRN 03/06/14 [History] LORazepam [Ativan] 1 mg PO ASDIRECTED PRN 03/06/14 [History] Lisinopril 5 mg PO DAILY 03/06/14 [History] oxyCODONE HCl/Acetaminophen [Percocet 5-325 mg Tablet] 1 - 2 each PO Q4H PRN #10 tablet 06/29/20 [Rx] Ezetimibe [Zetia] 10 mg PO DAILY 07/26/20 [History] FLUoxetine [PROzac] 10 mg PO DAILY 07/26/20 [History] Fluticasone Propionate [Flonase] 16 gm NS DAILY 07/26/20 [History] Furosemide [Lasix] 20 mg PO DAILY 07/26/20 [History] Gabapentin [Neurontin] 300 mg PO TID PRN 07/26/20 [History] Mupirocin Oint [Bactroban Oint] 22 gm TP DAILY 07/26/20 [History] Pravastatin Sodium [Pravastatin (Pravachol)] 40 mg PO DAILY 07/26/20 [History] hydroCHLOROthiazide [Hydrochlorothiazide] 25 mg PO DAILY 07/26/20 [History] Nitrofurantoin Monohyd/M-Cryst [Macrobid 100 mg Capsule] 100 mg PO BID #10 capsule 08/19/20 [Rx] Past Medical History HEENT History: Reports: Impaired Vision Cardiovascular History: Reports: High Cholesterol, Hypertension Respiratory History: Reports: None Gastrointestinal History: Reports: Other (See Below) Other Gastrointestinal History: hernia EAP CONSULTANT History: Reports: Other (See Below) Other EAP CONSULTANT History: cryo sx Musculoskeletal History: Reports: Fracture Neurological History: Reports: Neuropathy, Peripheral, Other (See Below) Other Neuro History: head injury from fall Psychiatric History: Reports: Anxiety, Other (See Below) Endocrine/Metabolic History: Reports: Obesity/BMI 30+ Hematologic History: Reports: None Immunologic History: Reports: None Oncologic (Cancer) History: Reports: Breast Dermatologic History: Reports: None - Infectious Disease History Infectious Disease History: Reports: Chicken Pox, Influenza, Measles, Shingles - Past Surgical History HEENT Surgical History: Reports: Tonsillectomy, Other (See Below) Other HEENT Surgeries/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 GI Surgical History: Reports: Appendectomy, Hernia Repair/Other Female Surgical History: Reports: Breast Biopsy, Hysterectomy, Other (See Below) Other Female Surgeries/Procedures: lumpectomy on L breast Social & Family History - Family History Family Medical History: No Pertinent Family History - Tobacco Use Tobacco Use Status *Q: Never Tobacco User - Caffeine Use Caffeine Use: Reports: Coffee - Living Situation & Occupation Living situation: Reports: Single 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 Denies: Headache, Numbness, Weakness ED EXAM, NEURO - Physical Exam Exam: See Below Exam Limited By: No Limitations General Appearance: Alert, No Apparent Distress Ears: Normal External Exam Nose: Normal Inspection Head Exam: Atraumatic, Normocephalic Neck: Normal Inspection Respiratory/Chest: No Respiratory Distress, Lungs Clear, Normal Breath Sounds Cardiovascular: Regular Rate, Rhythm, No Edema, No Murmur GI/Abdominal: Soft, Non-Tender, No Organomegaly, No Mass Neurological: Alert, No Motor/Sensory Deficits, Oriented x 3 Extremities: Normal Inspection #1 Interpretation EKG Date: 08/19/20 Time: 07:29 Rhythm: NSR Rate (Beats/Min): 89 [place]: Normal P-Wave: Present QRS: Normal ST-T: Normal QT: Normal Course - Vital Signs Last Recorded V/S: Last Vital Signs Temp 97.5 F 08/19/20 06:46 Pulse 97 08/19/20 06:46 Resp 16 08/19/20 06:46 BP 117/69 08/19/20 06:46 Pulse Ox 93 L 08/19/20 06:46 - Orders/Labs/Meds Orders: Active Orders 24 hr Category Date Time Status Cardiac Monitoring [RC] . DIRECTED Care 08/19/20 07:08 Active EKG Documentation Completion [RC] STAT Care 08/19/20 07:08 Active Head wo Cont [CT] Stat Exams 08/19/20 07:09 Taken Labs: Laboratory Tests 08/19/20 08/19/20 08/19/20 Range/Units 07:08 07:33 07:33 WBC 6.74 (3.98-10.04) K/mm3 RBC 4.06 (3.98-5.22) M/mm3 Hgb 12.6 D (11.2-15.7) gm/dl Hct 39.1 (34.1-44.9) % MCV 96.3 H (79.4-94.8) fl MCH 31.0 (25.6-32.2) pg MCHC 32.2 (32.2-35.5) g/dl RDW Std Deviation 41.9 (36.4-46.3) fL Plt Count 124 L D (182-369) K/mm3 MPV 10.3 (9.4-12.3) fl Neut % (Auto) 56.0 (34.0-71.1) % Lymph % (Auto) 28.6 (19.3-51.7) % [place] % (Auto) 12.3 (4.7-12.5) % Eos % (Auto) 2.4 (0.7-5.8) Baso % (Auto) 0.4 (0.1-1.2) % Neut # (Auto) 3.77 (1.56-6.13) K/mm3 Lymph # (Auto) 1.93 (1.18-3.74) K/mm3 [place] # (Auto) 0.83 H (0.24-0.36) K/mm3 Eos # (Auto) 0.16 (0.04-0.36) K/mm3 Baso # (Auto) 0.03 (0.01-0.08) K/mm3 Sodium 139 (136-145) mEq/L Potassium 3.8 (3.5-5.1) mEq/L Chloride 103 (98-107) mEq/L Carbon Dioxide 28 (21-32) mEq/L Anion Gap 11.8 (5-15) BUN 12 (7-18) mg/dL Creatinine 0.8 (0.55-1.02) mg/dL Est Cr Clr Drug Dosing 58.88 mL/min Estimated GFR (MDRD) > 60 (>60) mL/min BUN/Creatinine Ratio 15.0 (14-18) Glucose 104 (80-115) mg/dL Calcium 8.7 (8.5-10.1) mg/dL Magnesium 2.1 (1.8-2.4) mg/dl Total Bilirubin 0.4 (0.2-1.0) mg/dL AST 36 (15-37) U/L ALT 29 (14-59) U/L Alkaline Phosphatase 57 (46-116) U/L Troponin I < 0.017 (0.00-0.056) ng/mL Total Protein 6.5 (6.4-8.2) g/dl Albumin 3.5 (3.4-5.0) g/dl Globulin 3.0 gm/dL Albumin/Globulin Ratio 1.2 (1-2) Urine Color Yellow (Yellow) Urine Appearance Clear (Clear) Urine pH 6.0 (5.0-8.0) Ur Specific [place] 1.015 (1.005-1.030) Urine Protein Negative (Negative) Urine Glucose (UA) Trace H (Negative) Urine Ketones Negative (Negative) Urine Occult Blood Trace-intact H (Negative) Urine Nitrite Positive H (Negative) Urine Bilirubin Negative (Negative) Urine Urobilinogen 0.2 (0.2-1.0) Ur Leukocyte Esterase Negative (Negative) Urine RBC 0-5 (0-5) /hpf Urine WBC 0-5 (0-5) /hpf Ur Epithelial Cells 0-5 (0-5) /hpf Urine Bacteria Few (FEW) /hpf Urine Mucus Rare (FEW) /hpf Meds: Medications Discontinued Medications Generic Name Dose Route Start Last Admin Trade Name Freq PRN Reason Stop Dose Admin Nitrofurantoin Macrocrystals 100 mg 08/19/20 09:03 Macrobid PO 08/19/20 09:04 ONETIME ONE - Re-Assessments/Exams Free Text/Narrative Re-Assessment/Exam: 08/19/20 07:46 I ordered labs, EKG and a CT of her head. Her EKG shows a NSR with no acute changes. 08/19/20 08:[address] of her head shows some chronic sinus congestion but nothing acute. Her CBC and CMP look good. Her troponin is negative. Her UA was positive for nitrites. I will treat her for a UTI. 08/19/20 09:04 I will give her a dose of macrobid here and a prescription for more. Departure - Departure Time of Disposition: 09:10 Disposition: Home, Self-Care 01 Condition: Good Clinical Impression: Dizziness UTI (urinary tract infection) Qualifiers: Urinary tract infection type: acute cystitis Hematuria presence: without hematuria Qualified Code(s): N30.00 - Acute cystitis without hematuria - Discharge Information *PRESCRIPTION DRUG MONITORING PROGRAM REVIEWED*: Not Applicable *COPY OF PRESCRIPTION DRUG MONITORING REPORT IN PATIENT KEYLA: Not Applicable Prescriptions: Nitrofurantoin Monohyd/M-Cryst [Macrobid 100 mg Capsule] 100 mg PO BID #10 capsule Referrals: PCP,Not In Area [Primary Care Provider] - Adriana Singh NP [Ordering Only Provider] - 1 Week Forms: ED Department Discharge Additional Instructions: Take the macrobid 2 times per day for 5 days. Drink plenty of water. Take your other medications as prescribed. Please return if you are worse. Sepsis Event Note (ED) - Evaluation Sepsis Screening Result: No Definite Risk - Focused Exam Vital Signs: Vital Signs Temp Pulse Resp BP Pulse Ox 08/19/20 06:46 97.5 F 97 16 117/69 93 L - My Orders Last 24 Hours: My Active Orders 08/19/20 07:08 Cardiac Monitoring [RC] . DIRECTED EKG Documentation Completion [RC] STAT 08/19/20 07:09 Head wo Cont [CT] Stat - Assessment/Plan Last 24 Hours: My Active Orders 08/19/20 07:08 Cardiac Monitoring [RC] . DIRECTED EKG Documentation Completion [RC] STAT 08/19/20 07:09 Head wo Cont [CT] Stat
[2020-08-19] MEDS ORDERED: Nitrofurantoin Monohydrate/Macrocrystalline 100 MG Cap PO ONE (09:03)
--- NOTE | 2020-08-19 13:12 | CT ---
Head CT Technique: Multiple axial sections through the brain were obtained. Intravenous contrast was not utilized. Comparison: Prior head CT study of 02/23/20 and brain MRI of 07/29/20. Findings: Ventricles along with basal cisterns and sulci over the convexities are within normal limits for the patient's age. No abnormal parenchymal densities are seen. No evidence of intracranial hemorrhage. No midline shift or mass-effect is seen. Bone window settings were reviewed which show no acute calvarial finding. Very minimal mucosal thickening is noted within the inferior left mastoid sinus which is felt to be chronic. No acute findings are seen within the visualized paranasal sinuses. Impression: 1. Slight mucosal thickening within the inferior left mastoid sinus which is believed to be chronic. 2. Nothing acute is appreciated on noncontrast head CT exam. Diagnostic code #2 MTDD
== END 2020-08-19 09:30 | disposition home or self-care (01) ==
LOC: JD.ED 06:23
DX: N30.01 Acute cystitis with hematuria (principal); R42 Dizziness and giddiness; C50.919 Malignant neoplasm of unspecified site of unspecified female breast; E78.00 Pure hypercholesterolemia, unspecified; I10 Essential (primary) hypertension; E66.9 Obesity, unspecified; Z68.33 Body mass index [BMI] 33.0-33.9, adult; Z88.0 Allergy status to penicillin; Z88.1 Allergy status to other antibiotic agents; Z88.8 Allergy status to other drugs, medicaments and biological substances; Z88.2 Allergy status to sulfonamides; Z79.899 Other long term (current) drug therapy
CPT/HCPCS: 36415; 70450; 80053; 81001; 83735; 84484; 85025; 93005; 99284; A9270; 93010

== ENCOUNTER 2020-10-26 13:25 | Emergency (ER) | payer MEDICARE ==
--- NOTE | 2020-10-26 15:34 | EDM.PDOC ---
ED HPI GENERAL MEDICAL PROBLEM - General Chief Complaint: Lower Extremity Injury/Pain Stated Complaint: L LEG PAIN/POSS BLOOD CLOT Time Seen by Provider: 10/26/20 13:49 Source of Information: Reports: Patient History Limitations: Reports: No Limitations - History of Present Illness INITIAL COMMENTS - FREE TEXT/NARRATIVE: 70-year-old female presents the emergency department with complaints of left lower extremity pain. She states that she has a peripheral neuropathy for which she receives vitamin C infusions in [place]. She gets these about every other week. She states that she has been traveling more frequently via car. Most recently she was in [place] 2 days ago and then returned home today. She states she developed pain behind her left knee that radiates down to her distal calf. She states it almost feels like a "fluttering "behind her knee. However she states there is a significant amount of shooting pain as well. She denies any smoking history, she denies any history of being on hormone therapy. She does have a history of breast cancer in the past. She denies any shortness of breath, fever, chills, nausea, vomiting, or diarrhea or headache. She states that the onset of the pain was this morning. Left Leg Pain Score (Numeric/FACES): 9 - Related Data Allergies Allergy/AdvReac Type Severity Reaction Status Date / Time amoxicillin [From Augmentin] Allergy Unknown Verified 08/19/20 06:36 Cephalosporins Allergy Unknown Verified 08/19/20 06:36 clavulanic acid Allergy Unknown Verified 08/19/20 06:36 [From Augmentin] gabapentin Allergy Unknown Verified 08/19/20 06:36 pregabalin Allergy Unknown Verified 08/19/20 06:36 sulfanilamide Allergy Unknown Verified 08/19/20 06:36 Home Meds: Home Meds Cyclobenzaprine [Flexeril] 10 mg PO Q8H PRN #20 tab 03/06/14 [Rx] Eszopiclone [Lunesta] 3 mg PO ASDIRECTED PRN 03/06/14 [History] LORazepam [Ativan] 1 mg PO ASDIRECTED PRN 03/06/14 [History] Lisinopril 5 mg PO DAILY 03/06/14 [History] Ezetimibe [Zetia] 10 mg PO DAILY 07/26/20 [History] FLUoxetine [PROzac] 10 mg PO DAILY 07/26/20 [History] Fluticasone Propionate [Flonase] 16 gm NS DAILY 07/26/20 [History] Furosemide [Lasix] 20 mg PO DAILY 07/26/20 [History] Gabapentin [Neurontin] 300 mg PO TID PRN 07/26/20 [History] Mupirocin Oint [Bactroban Oint] 22 gm TP DAILY PRN 07/26/20 [History] Pravastatin Sodium [Pravastatin (Pravachol)] 40 mg PO DAILY 07/26/20 [History] hydroCHLOROthiazide [Hydrochlorothiazide] 25 mg PO DAILY 07/26/20 [History] Past Medical History HEENT History: Reports: Impaired Vision Cardiovascular History: Reports: High Cholesterol, Hypertension Respiratory History: Reports: None Gastrointestinal History: Reports: Other (See Below) Other Gastrointestinal History: hernia MARKETING ANALYST History: Reports: Other (See Below) Other MARKETING ANALYST History: cryo sx Musculoskeletal History: Reports: Fracture Neurological History: Reports: Neuropathy, Peripheral, Other (See Below) Other Neuro History: head injury from fall Psychiatric History: Reports: Anxiety, Other (See Below) Endocrine/Metabolic History: Reports: Obesity/BMI 30+ Hematologic History: Reports: None Immunologic History: Reports: None Oncologic (Cancer) History: Reports: Breast Dermatologic History: Reports: None - Infectious Disease History Infectious Disease History: Reports: Chicken Pox, Influenza, Measles, Shingles - Past Surgical History HEENT Surgical History: Reports: Tonsillectomy, Other (See Below) Other HEENT Surgeries/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 GI Surgical History: Reports: Appendectomy, Hernia Repair/Other Female Surgical History: Reports: Breast Biopsy, Hysterectomy, Other (See Below) Other Female Surgeries/Procedures: lumpectomy on L breast Social & Family History - Family History Family Medical History: No Pertinent Family History - Tobacco Use Tobacco Use Status *Q: Never Tobacco User - Caffeine Use Caffeine Use: Reports: Coffee - Recreational Drug Use Recreational Drug Use: No - Living Situation & Occupation Living situation: Reports: Single 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 ED EXAM, GENERAL - Physical Exam Exam: See Below Exam Limited By: No Limitations General Appearance: Alert, WD/WN, No Apparent Distress Ears: Normal External Exam, Hearing Grossly Normal Nose: Normal Inspection Throat/Mouth: Normal Inspection, Normal Lips, Normal Voice, No Airway Compromise Head: Atraumatic, Normocephalic Neck: Normal Inspection, Supple Respiratory/Chest: No Respiratory Distress, No Accessory Muscle Use Cardiovascular: Normal Peripheral Pulses, Regular Rate, Rhythm Peripheral Pulses: 2+: Radial (L), Radial (R) GI/Abdominal: Normal Bowel Sounds, Soft, Non-Tender, No Distention (Female) Exam: Deferred Rectal (Female) Exam: Deferred Back Exam: Normal Inspection, Full Range of Motion Extremities: Normal Inspection, Normal Range of Motion, Non-Tender, No Pedal Edema, Normal Capillary Refill Neurological: Alert, Oriented, Normal Cognition Psychiatric: Normal Affect, Normal Mood Skin Exam: Warm, Dry, Intact, Normal Color, No Rash Lymphatic: No Adenopathy Course - Vital Signs Text/Narrative:: 70-year-old female with new onset of left lower extremity pain behind the knee shooting down the back of her calf distally. Denies any shortness of breath or cough. She denies smoking. She denies any history of DVT or PE. Patient is requesting to be checked for a blood clot. On assessment, there is no redness, warmth, or swelling noted to the left lower extremity. She does have some tenderness noted with palpation to the popliteal area. CMS is also positive. I have ordered an ultrasound of the left lower extremity. Last Recorded V/S: Last Vital Signs Temp 98.2 F 10/26/20 13:43 Pulse 106 H 10/26/20 13:43 Resp 20 10/26/20 13:43 BP 132/70 10/26/20 13:43 Pulse Ox 94 L 10/26/20 13:43 - Orders/Labs/Meds Orders: Active Orders 24 hr Category Date Time Status VL Duplex Lwr Ext Veins Ltd Lt [US] Stat Exams 10/26/20 14:02 Taken - Re-Assessments/Exams Free Text/Narrative Re-Assessment/Exam: 10/26/20 16:18 v Rad interpretation ultrasound duplex left lower extremity veins: Negative. No deep venous thrombosis is seen. Departure - Departure Time of Disposition: 16:21 Disposition: Home, Self-Care 01 Condition: Good Clinical Impression: Left leg pain - Discharge Information Referrals: Adriana Singh NP [Primary Care Provider] - Forms: ED Department Discharge Additional Instructions: You were seen in the emergency department today with complaints of pain to your left lower extremity behind her left knee. An ultrasound was completed and you do not have a blood clot in your left leg. You could however have a Amezcua's cyst which can cause discomfort. Treatment for this is nonsteroidal anti- inflammatories. You can take ibuprofen 600 mg every 6 hours for the next 48 hours or Aleve 2 tabs every 12 hours for the next 48 hours. Be sure to take these medications with food. Recommend you follow-up with your primary care physician as you stated you already have an appointment this upcoming Wednesday. Should your condition worsen or change do not hesitate returning to the emergency department. Sepsis Event Note (ED) - Evaluation Sepsis Screening Result: No Definite Risk - Focused Exam Vital Signs: Vital Signs Temp Pulse Resp BP Pulse Ox 10/26/20 13:43 98.2 F 106 H 20 132/70 94 L - My Orders Last 24 Hours: My Active Orders 10/26/20 14:02 VL Duplex Lwr Ext Veins Ltd Lt [US] Stat - Assessment/Plan Last 24 Hours: My Active Orders 10/26/20 14:02 VL Duplex Lwr Ext Veins Ltd Lt [US] Stat
--- NOTE | 2020-10-27 07:31 | US ---
Left lower extremity deep venous ultrasound: Duplex and color Doppler evaluation was obtained on the left common femoral, proximal greater saphenous, superficial femoral, popliteal, posterior tibial and peroneal veins. Right common femoral vein was also evaluated. Normal phasic flow, augmentation and compression is seen. Impression: 1. No findings of deep venous thrombosis within the left lower extremity or within the right common femoral vein. Diagnostic code #1 I agree with preliminary report from [facility], finalized on 10/26/20, 4:30 PM CDT, code 1
== END 2020-10-26 16:41 | disposition home or self-care (01) ==
LOC: JD.ED 13:25
DX: M79.605 Pain in left leg (principal); E78.00 Pure hypercholesterolemia, unspecified; I10 Essential (primary) hypertension; E66.9 Obesity, unspecified; Z88.0 Allergy status to penicillin; Z88.2 Allergy status to sulfonamides; Z88.8 Allergy status to other drugs, medicaments and biological substances; Z88.5 Allergy status to narcotic agent; Z68.34 Body mass index [BMI] 34.0-34.9, adult
CPT/HCPCS: 93971-26-LT; 93971-LT; 99282; 99283-25

== ENCOUNTER 2021-01-07 21:43 | Emergency (ER) | payer MEDICARE ==
[2021-01-07] MEDS ORDERED: LORazepam 0.5 MG Tab PO ONE (22:16)
--- NOTE | 2021-01-07 22:17 | EDM.PDOC ---
ED HPI GENERAL MEDICAL PROBLEM - General Chief Complaint: General Stated Complaint: POSS AIR TRAPPED IN UPPER STOMACH Time Seen by Provider: 01/07/21 21:52 Source of Information: Reports: Patient History Limitations: Reports: No Limitations - History of Present Illness INITIAL COMMENTS - FREE TEXT/NARRATIVE: Patient is a 70-year-old female who is complaining of hip Pain which started this morning and continued until approximately an hour prior to arrival. Patient has not had a cough since then. She was concerned because every hiccup caused her to have some epigastric pain. She had no pain in between hiccups. She has no symptoms whatsoever right now. She is not having any chest pain or nausea or vomiting or diaphoresis. She has not had these hiccups for this longer duration before. She is not having any abdominal pain currently. She has taken nothing or done nothing for her symptoms earlier. She has had notes shortness of breath or respiratory symptoms. Onset: Today Duration: Resolved Prior to Arrival Location: Reports: Chest Quality: Reports: Ache Severity: Moderate Improves with: Reports: Rest Worsens with: Reports: Movement Associated Symptoms: Reports: No Other Symptoms - Related Data Allergies Allergy/AdvReac Type Severity Reaction Status Date / Time amoxicillin [From Augmentin] Allergy Severe Redness Verified 01/07/21 21:56 Cephalosporins Allergy Severe Unknown Verified 01/07/21 21:56 clavulanic acid Allergy Severe Redness Verified 01/07/21 21:56 [From Augmentin] Home Meds: Home Meds Cyclobenzaprine [Flexeril] 10 mg PO Q8H PRN #20 tab 03/06/14 [Rx] LORazepam [Ativan] 1 mg PO ASDIRECTED PRN 03/06/14 [History] Lisinopril 5 mg PO DAILY 03/06/14 [History] Ezetimibe [Zetia] 10 mg PO DAILY 07/26/20 [History] FLUoxetine [PROzac] 10 mg PO DAILY 07/26/20 [History] Fluticasone Propionate [Flonase] 16 gm NS DAILY PRN 07/26/20 [History] Furosemide [Lasix] 20 mg PO DAILY 07/26/20 [History] Gabapentin [Neurontin] 300 mg PO TID PRN 07/26/20 [History] Mupirocin Oint [Bactroban Oint] 22 gm TP DAILY PRN 07/26/20 [History] Pravastatin Sodium [Pravastatin (Pravachol)] 40 mg PO DAILY 07/26/20 [History] hydroCHLOROthiazide [Hydrochlorothiazide] 25 mg PO DAILY 07/26/20 [History] traZODone 50 mg PO BEDTIME 01/07/21 [History] Past Medical History HEENT History: Reports: Impaired Vision Cardiovascular History: Reports: High Cholesterol, Hypertension Respiratory History: Reports: None Gastrointestinal History: Reports: Other (See Below) Other Gastrointestinal History: hernia 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: Reports: Other (See Below) Other 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: cryo sx Musculoskeletal History: Reports: Fracture Neurological History: Reports: Neuropathy, Peripheral, Other (See Below) Other Neuro History: head injury from fall Psychiatric History: Reports: Anxiety Endocrine/Metabolic History: Reports: Obesity/BMI 30+ Hematologic History: Reports: None Immunologic History: Reports: None Oncologic (Cancer) History: Reports: Breast Dermatologic History: Reports: None - Infectious Disease History Infectious Disease History: Reports: Chicken Pox, Influenza, Measles, Shingles - Past Surgical History HEENT Surgical History: Reports: Tonsillectomy, Other (See Below) Other HEENT Surgeries/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 GI Surgical History: Reports: Appendectomy, Hernia Repair/Other Female Surgical History: Reports: Breast Biopsy, Hysterectomy, Other (See Below) Other Female Surgeries/Procedures: lumpectomy on L breast Oncologic Surgical History: Reports: Lumpectomy Social & Family History - Family History Family Medical History: No Pertinent Family History - Tobacco Use Tobacco Use Status *Q: Never Tobacco User - Caffeine Use Caffeine Use: Reports: None - Recreational Drug Use Recreational Drug Use: No - Living Situation & Occupation Living situation: Reports: Single 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 ED EXAM, GENERAL - Physical Exam Exam: See Below Exam Limited By: No Limitations General Appearance: Alert, No Apparent Distress Head: Normocephalic Neck: Normal Inspection, Supple Respiratory/Chest: No Respiratory Distress, Lungs Clear, Normal Breath Sounds Cardiovascular: Regular Rate, Rhythm, No JVD GI/Abdominal: Soft, Non-Tender, No Distention Extremities: Normal Inspection Neurological: Alert, Oriented, Normal Cognition Psychiatric: Normal Affect, Normal Mood Skin Exam: Warm, Dry, Normal Color Course - Vital Signs Text/Narrative:: I have reassured the patient that I have no concerns at this point and would not recommend that we start doing a work-up on her since her symptoms have resolved. I have informed her that Thorazine is only approved medicine for treating hiccups and she states she is taken Thorazine years ago when she was in a drug trial and that had horrible effects on her. I am sending her home with 2 half milligram tablets of lorazepam to use if they Restart and Advise Her If They Continue to Follow-Up with Her PCP but She May Return to ER If Her Symptoms Are Worse. Last Recorded V/S: Last Vital Signs Temp 96.9 F 01/07/21 21:52 Pulse 125 H 01/07/21 21:52 Resp 16 01/07/21 21:52 BP 156/90 H 01/07/21 21:52 Pulse Ox 92 L 01/07/21 21:52 Departure - Departure Time of Disposition: 22:14 Disposition: Home, Self-Care 01 Condition: Good Clinical Impression: Intractable hiccups - Discharge Information Referrals: Adriana Singh NP [Primary Care Provider] - Additional Instructions: Follow-up PCP if symptoms continue return to ER if worse. Sepsis Event Note (ED) - Evaluation Sepsis Screening Result: No Definite Risk - Focused Exam Vital Signs: Vital Signs Temp Pulse Resp BP Pulse Ox 01/07/21 21:52 96.9 F 125 H 16 156/90 H 92 L
== END 2021-01-07 22:30 | disposition home or self-care (01) ==
LOC: JD.ED 21:43
DX: R06.6 Hiccough (principal); E78.00 Pure hypercholesterolemia, unspecified; I10 Essential (primary) hypertension; E66.9 Obesity, unspecified; Z68.34 Body mass index [BMI] 34.0-34.9, adult; Z88.0 Allergy status to penicillin; Z88.1 Allergy status to other antibiotic agents; Z79.899 Other long term (current) drug therapy
CPT/HCPCS: 99283

== ENCOUNTER 2021-05-15 03:42 | Emergency (ER) | payer MEDICARE ==
--- NOTE | 2021-05-15 04:11 | EDM.PDOC ---
ED HPI GENERAL MEDICAL PROBLEM - General Chief Complaint: Genitourinary Problem Stated Complaint: BLOOD IN URINE Time Seen by Provider: 05/15/21 03:48 Source of Information: Reports: Patient History Limitations: Reports: No Limitations - History of Present Illness INITIAL COMMENTS - FREE TEXT/NARRATIVE: Ms. Roa is a very pleasant 78-year-old woman who now presents the ED stating that she noticed some blood streaks on the toilet paper after voiding around midnight, then again around 03:00 this morning. She denies recent dysuria, suprapubic pain, flank pain, or fever. No prior similar symptoms. No [id number] or home remedies since the onset of her symptoms. Here in the ED, the patient was initially found to be slightly tachycardic at 107 bpm, otherwise, she is hemodynamically stable, afebrile, saturating 96% on room air. She appears to be comfortable, in no acute distress. The patient denies having a recent fever, chills, sore throat, ear pain, nasal o r sinus congestion, cough, dyspnea, chest pain, palpitations, nausea, vomiting, constipation, diarrhea, abdominal pain, urinary symptoms, recent weight gain or weight loss, recent bloody bowel movements or black bowel movements, recent joint aches, headaches, or rashes. I reviewed the PMHx/PSHx/SocHx, which was reviewed with the patient by the RN. The patient's PCP is Adriana Singh NP. She believes she has received a single COVID vaccination, and an influenza vaccination this season. - Related Data Allergies Allergy/AdvReac Type Severity Reaction Status Date / Time amoxicillin [From Augmentin] Allergy Severe Redness Verified 05/15/21 03:57 Cephalosporins Allergy Severe Unknown Verified 05/15/21 03:57 clavulanic acid Allergy Severe Redness Verified 05/15/21 03:57 [From Augmentin] Sulfa (Sulfonamide Allergy Itching Verified 05/15/21 03:57 Antibiotics) Home Meds: Home Meds Cyclobenzaprine [Flexeril] 10 mg PO Q8H PRN #20 tab 03/06/14 [Rx] LORazepam [Ativan] 1 mg PO ASDIRECTED PRN 03/06/14 [History] Lisinopril 5 mg PO DAILY 03/06/14 [History] Ezetimibe [Zetia] 10 mg PO DAILY 07/26/20 [History] FLUoxetine [PROzac] 10 mg PO DAILY 07/26/20 [History] Fluticasone Propionate [Flonase] 16 gm NS DAILY PRN 07/26/20 [History] Furosemide [Lasix] 20 mg PO DAILY 07/26/20 [History] Gabapentin [Neurontin] 300 mg PO TID PRN 07/26/20 [History] Mupirocin Oint [Bactroban Oint] 22 gm TP DAILY PRN 07/26/20 [History] Pravastatin Sodium [Pravastatin (Pravachol)] 40 mg PO DAILY 07/26/20 [History] hydroCHLOROthiazide [Hydrochlorothiazide] 25 mg PO DAILY 07/26/20 [History] traZODone 50 mg PO BEDTIME 01/07/21 [History] Past Medical History HEENT History: Reports: Impaired Vision Cardiovascular History: Reports: High Cholesterol, Hypertension Respiratory History: Reports: None Gastrointestinal History: Reports: Other (See Below) Other Gastrointestinal History: hernia 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: 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: Other (See Below) 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 Musculoskeletal History: Reports: Fracture Neurological History: Reports: Neuropathy, Peripheral, Other (See Below) Other Neuro History: head injury from fall Psychiatric History: Reports: Anxiety Endocrine/Metabolic History: Reports: Obesity/BMI 30+ Hematologic History: Reports: None Immunologic History: Reports: None Oncologic (Cancer) History: Reports: Breast Dermatologic History: Reports: None - Infectious Disease History Infectious Disease History: Reports: Chicken Pox, Influenza, Measles, Shingles - Past Surgical History HEENT Surgical History: Reports: Tonsillectomy, Other (See Below) Other HEENT Surgeries/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 GI Surgical History: Reports: Appendectomy, Hernia Repair/Other Female Surgical History: Reports: Breast Biopsy, Hysterectomy, Other (See Below) Other Female Surgeries/Procedures: lumpectomy on L breast Oncologic Surgical History: Reports: Lumpectomy Social & Family History - Tobacco Use Tobacco Use Status *Q: Never Tobacco User - Caffeine Use Caffeine Use: Reports: Coffee - Alcohol Use Alcohol Use History: No - Recreational Drug Use Recreational Drug Use: No - Living Situation & Occupation Living situation: Reports: , with Significant Other (Boyfriend) 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 ED EXAM, RENAL/ - Physical Exam Exam: See Below Exam Limited By: No Limitations General Appearance: Alert, WD/WN, No Apparent Distress Eye Exam: Bilateral Eye: EOMI, Normal Inspection Ears: Normal External Exam, Hearing Grossly Normal Nose: Normal Inspection Throat/Mouth: Normal Inspection, Normal Lips, Normal Voice, No Airway Compromise Head: Atraumatic, Normocephalic Neck: Normal Inspection, Full Range of Motion Respiratory/Chest: No Respiratory Distress, Lungs Clear, Normal Breath Sounds, No Accessory Muscle Use Cardiovascular: Normal Peripheral Pulses, Regular Rate, Rhythm, No Edema, No Gallop, No JVD, No Murmur, No Rub GI/Abdominal: Normal Bowel Sounds, Soft, Non-Tender (including suprapubically), No Organomegaly, No Distention, No Abnormal Bruit, No Mass Back Exam: Normal Inspection, Full Range of Motion, NT Extremities: Normal Inspection, Normal Range of Motion, No Pedal Edema, Normal Capillary Refill Neurological: Alert, Oriented, Normal Cognition, No Motor/Sensory Deficits Psychiatric: Normal Affect Skin Exam: Warm, Dry, Intact, Normal Color, No Rash Course - Vital Signs Last Recorded V/S: Last Vital Signs Temp 36.1 C 05/15/21 03:52 Pulse 107 H 05/15/21 03:52 Resp 18 05/15/21 03:52 BP 124/73 05/15/21 03:52 Pulse Ox 96 05/15/21 03:52 - Orders/Labs/Meds Labs: Laboratory Tests 05/15/21 Range/Units 05:14 Urine Color Yellow (Yellow) Urine Appearance Clear (Clear) Urine pH 6.0 (5.0-8.0) Ur Specific Lehr 1.015 (1.005-1.030) Urine Protein Negative (Negative) Urine Glucose (UA) Negative (Negative) Urine Ketones Trace H (Negative) Urine Occult Blood Negative (Negative) Urine Nitrite Negative (Negative) Urine Bilirubin 1+ H (Negative) Urine Urobilinogen 0.2 (0.2-1.0) Ur Leukocyte Esterase Negative (Negative) Urine RBC 0-5 (0-5) /hpf Urine WBC 0-5 (0-5) /hpf Ur Epithelial Cells 5-10 H (0-5) /hpf Urine Bacteria Few (FEW) /hpf Urine Mucus Few (FEW) /hpf - Re-Assessments/Exams Free Text/Narrative Re-Assessment/Exam: 05/15/21 04:07 I have ordered a urinalysis by clean-catch. 05/15/21 06:11 The patient's urinalysis, collected by quick catch, is unremarkable. 05/15/21 06:13 Urinalysis results discussed with the patient and her boyfriend (now present). She may be suffering from atrophic vaginitis. I will have her follow-up with her PCP. Departure - Departure Time of Disposition: 06:13 Disposition: Home, Self-Care 01 Condition: Good Clinical Impression: Atrophic vaginitis - Discharge Information *PRESCRIPTION DRUG MONITORING PROGRAM REVIEWED*: Not Applicable *COPY OF PRESCRIPTION DRUG MONITORING REPORT IN PATIENT KEYLA: Not Applicable Referrals: Adriana Singh NP [Primary Care Provider] - Forms: ED Department Discharge Additional Instructions: You were seen in the emergency room after discovering some blood streaks on the toilet paper after voiding. Work-up in the ER included a urinalysis, which returned unremarkable. You do not have a urinary tract infection. No blood was seen in your urine. Your symptoms may be due to atrophic vaginitis. Please follow-up with your PCP, Adriana Singh NP, for further evaluation and treatment. If any other problems, please do not hesitate to return to the ER. Sepsis Event Note (ED) - Evaluation Sepsis Screening Result: No Definite Risk - Focused Exam Vital Signs: Vital Signs Temp Pulse Resp BP Pulse Ox 05/15/21 03:52 36.1 C 107 H 18 124/73 96
== END 2021-05-15 06:22 | disposition home or self-care (01) ==
LOC: JD.ED 03:42
DX: N95.2 Postmenopausal atrophic vaginitis (principal); E78.00 Pure hypercholesterolemia, unspecified; I10 Essential (primary) hypertension; E66.9 Obesity, unspecified; Z88.0 Allergy status to penicillin; Z88.2 Allergy status to sulfonamides; Z79.899 Other long term (current) drug therapy; Z68.31 Body mass index [BMI] 31.0-31.9, adult
CPT/HCPCS: 81001; 99283

== ENCOUNTER 2021-06-21 15:18 | Emergency (ER) | payer MEDICARE ==
[2021-06-21] MEDS ORDERED: Sodium Chloride 0.9% 10 ML Syringe FLUSH PRN (15:28)
[2021-06-21 16:10] LABS: ACETAMINOPHEN 10 ug/mL (10-30)
[2021-06-21 16:27] LABS: CORONAVIRUS COVID-19 NAA NEGATIVE (NEGATIVE)
[2021-06-21 16:38] LABS: CORONAVIRUS COVID-19 NAA NEGATIVE (NEGATIVE)
--- NOTE | 2021-06-21 17:56 | EDM.PDOC ---
<Addy Ellington - Last Filed: 06/21/21 19:33> ED HPI GENERAL MEDICAL PROBLEM - General Chief Complaint: Neurological Problem Stated Complaint: KAYLEE Time Seen by Provider: 06/21/21 15:18 - History of Present Illness INITIAL COMMENTS - FREE TEXT/NARRATIVE: 70-year-old female brought in by EMS with concerns of a stroke as she is having some speech difficulties. Patient believes her last known normal was before 10 AM this morning. She caught herself walking around in circles. And bystanders reported to EMS that she was walking around in circles. The patient denies any pain. Her speech is a little rushed and she does not make a lot of sense. She has no evidence of any extremity weakness or facial asymmetry. The patient cannot tell us what medications she is taking. The [employer] crew that brought her in brought a big bag of [id number] supplements. She denies any pain at this point and otherwise has no complaints - Related Data Allergies Allergy/AdvReac Type Severity Reaction Status Date / Time amoxicillin [From Augmentin] Allergy Severe Redness Verified 06/21/21 15:26 Cephalosporins Allergy Severe Unknown Verified 06/21/21 15:26 clavulanic acid Allergy Severe Redness Verified 06/21/21 15:26 [From Augmentin] Sulfa (Sulfonamide Allergy Itching Verified 06/21/21 15:26 Antibiotics) Home Meds: Home Meds Cyclobenzaprine [Flexeril] 10 mg PO Q8H PRN #20 tab 03/06/14 [Rx] LORazepam [Ativan] 1 mg PO ASDIRECTED PRN 03/06/14 [History] Lisinopril 5 mg PO DAILY 03/06/14 [History] Ezetimibe [Zetia] 10 mg PO DAILY 07/26/20 [History] FLUoxetine [PROzac] 10 mg PO DAILY 07/26/20 [History] Fluticasone Propionate [Flonase] 16 gm NS DAILY PRN 07/26/20 [History] Furosemide [Lasix] 20 mg PO DAILY 07/26/20 [History] Gabapentin [Neurontin] 300 mg PO TID PRN 07/26/20 [History] Mupirocin Oint [Bactroban Oint] 22 gm TP DAILY PRN 07/26/20 [History] Pravastatin Sodium [Pravastatin (Pravachol)] 40 mg PO DAILY 07/26/20 [History] hydroCHLOROthiazide [Hydrochlorothiazide] 25 mg PO DAILY 07/26/20 [History] traZODone 50 mg PO BEDTIME PRN 01/07/21 [History] Past Medical History HEENT History: Reports: Impaired Vision Cardiovascular History: Reports: High Cholesterol, Hypertension Respiratory History: Reports: None Gastrointestinal History: Reports: Other (See Below) Other Gastrointestinal History: hernia Genitourinary History: Reports: UTI, Recurrent INFORMATION SECURITY ENGINEER History: Reports: Other (See Below) Other INFORMATION SECURITY ENGINEER History: cryo sx Musculoskeletal History: Reports: Fracture Neurological History: Reports: Neuropathy, Peripheral, Other (See Below) Other Neuro History: head injury from fall Psychiatric History: Reports: Anxiety Endocrine/Metabolic History: Reports: Obesity/BMI 30+ Hematologic History: Reports: None Immunologic History: Reports: None Oncologic (Cancer) History: Reports: Breast Dermatologic History: Reports: None - Infectious Disease History Infectious Disease History: Reports: Chicken Pox, Influenza, Measles, Shingles - Past Surgical History HEENT Surgical History: Reports: Tonsillectomy, Other (See Below) Other HEENT Surgeries/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 GI Surgical History: Reports: Appendectomy, Hernia Repair/Other Female Surgical History: Reports: Breast Biopsy, Hysterectomy, Other (See Below) Other Female Surgeries/Procedures: lumpectomy on L breast Oncologic Surgical History: Reports: Lumpectomy Social & Family History - Tobacco Use Tobacco Use Status *Q: Never Tobacco User Second Hand Smoke Exposure: No - Caffeine Use Caffeine Use: Reports: Coffee - Recreational Drug Use Recreational Drug Use: No - Living Situation & Occupation Living situation: Reports: , with Significant Other (Boyfriend) 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) ED ROS GENERAL - Review of Systems Review Of Systems: See Below Constitutional: Reports: No Symptoms HEENT: Reports: No Symptoms Respiratory: Reports: No Symptoms Cardiovascular: Reports: No Symptoms GI/Abdominal: Reports: No Symptoms : Reports: No Symptoms Musculoskeletal: Reports: No Symptoms Skin: Reports: No Symptoms Neurological: Reports: Confusion, Trouble Speaking (Speech is rushed) Psychiatric: Reports: Anxiety ED EXAM, GENERAL - Physical Exam Exam: See Below Exam Limited By: Other (Her situation is concerning for possible medication effect) General Appearance: Alert, Anxious Eye Exam: Bilateral Eye: EOMI, Normal Inspection, PERRL Ears: Normal External Exam, Normal Canal, Hearing Grossly Normal, Normal TMs, Other (Excessive nonobstructive wax noted in left canal) Nose: Normal Inspection, Normal Mucosa, No Blood Throat/Mouth: Normal Inspection, Normal Lips, Normal Teeth, Normal Gums, Normal Oropharynx, Normal Voice, No Airway Compromise, Other (Semidry mucosa) Head: Atraumatic, Normocephalic Neck: Normal Inspection, Supple, Non-Tender, Full Range of Motion Respiratory/Chest: No Respiratory Distress, Lungs Clear, Normal Breath Sounds, No Accessory Muscle Use, Chest Non-Tender Cardiovascular: Regular Rate, Rhythm, No Murmur, Tachycardia (Rate around 100) GI/Abdominal: Normal Bowel Sounds, Soft, Non-Tender Back Exam: Normal Inspection. No: CVA Tenderness (L), CVA Tenderness (R) Extremities: Normal Inspection, Pedal Edema (Minimal if any pedal edema), Other Neurological: Alert, Other (Patient cannot stay on task with her thoughts) Psychiatric: Anxious #1 Interpretation EKG Date: 06/21/21 Rhythm: Other (Sinus tach with a single PAC) Rate (Beats/Min): 117 Epps: LAD-Left Epps Deviation P-Wave: Present QRS: Other (Low voltage more so in the precordial leads Q waves V3) ST-T: Normal QT: Normal Comparison: No Change (No significant changes other than the rate compared to 08/23/2020) Course - Re-Assessments/Exams Free Text/Narrative Re-Assessment/Exam: 06/21/21 19:27 Patient's care was in bits and pieces as were dealing with other critical patients in the department at the same time. Patient initially presented as a stroke alert because of her speech her abnormal speech was not secondary to a stroke she had no other signs of a stroke. After labs reviewed patient's case was discussed with poison control who agreed that probably the best option would be to observe her give her fluids and watch her did continue to improve over time she is improved somewhat. Their suspicion is opioids in combination with an antihistamine. With her positive tricyclic's on the drug screen could have been from diphenhydramine. Drug screen was also positive for opioids and oxycodone. Tylenol level was 10 she has a follow-up level at 19:30 this evening. The patient was a little hypoxic when she came in and required some oxygen I thought this could have been secondary to medication effect. Her D- dimer was normal but she still requiring the oxygen we will go ahead and check a CT of the chest no contrast. At this point it is change of shift further care and disposition per Dr. Oviedo. Departure - Departure Disposition: Home, Self-Care 01 Clinical Impression: Altered mental status - Discharge Information Referrals: Adriana Singh NP [Primary Care Provider] - Forms: ED Department Discharge Additional Instructions: You were seen in the emergency room after being found walking in circles, speaking quickly and nonsensically. Work-up in the ER included numerous blood tests, a urinalysis, a urine drug screen, a swab for the SARS-CoV-2 virus, influenza A + B viruses, and RSV viruse virus, as well as a CT scan of your head, chest, chest x-ray, and an ECG. Your work-up was remarkable for a urine drug screen positive for opiates, oxycodone, and tricyclic antidepressants. The remainder of your work-up was unremarkable. Based on your history, physical exam, and ER tests, your altered mental status was most likely due to excessive opioids. Please follow-up with your PCP, Adriana Singh NP, at the next available appointment, to discuss modification of your current opioid prescription regimen. If any other problems, please do not hesitate to return to the ER. <Will Oviedo - Last Filed: 06/22/21 09:32> Course - Vital Signs Last Recorded V/S: Last Vital Signs Temp 35.9 C L 06/22/21 06:00 Pulse 95 06/22/21 06:00 Resp 16 06/22/21 06:00 BP 142/94 H 06/22/21 06:00 Pulse Ox 97 06/22/21 06:00 - Orders/Labs/Meds Orders: Active Orders 24 hr Category Date Time Status Lactated Ringers [Ringers, Lactated] 1,000 ml Med 06/21/21 19:00 Active IV ASDIRECTED Sodium Chloride 0.9% [Saline Flush] Med 06/21/21 15:28 Active 10 ml FLUSH ASDIRECTED PRN Saline Lock Insert [OM.PC] Routine Oth 06/21/21 15:28 Ordered Medication Orders Lactated Ringer's (Ringers, Lactated) 1,000 mls @ 150 mls/hr IV ASDIRECTED TASHA Last Admin: 06/21/21 19:10 Dose: 150 mls/hr Documented by: YARA Sodium Chloride (Sodium Chloride 0.9% 10 Ml Syringe) 10 ml FLUSH ASDIRECTED PRN PRN Reason: Keep Vein Open Last Admin: 06/21/21 15:50 Dose: 10 ml Documented by: YARA Labs: Laboratory Tests 06/21/21 06/21/21 06/21/21 Range/Units 15:35 15:35 15:35 WBC 7.00 (3.98-10.04) K/mm3 RBC 4.10 (3.98-5.22) M/mm3 Hgb 12.9 (11.2-15.7) gm/dl Hct 38.9 (34.1-44.9) % MCV 94.9 H (79.4-94.8) fl MCH 31.5 (25.6-32.2) pg MCHC 33.2 (32.2-35.5) g/dl RDW Std Deviation 43.7 (36.4-46.3) fL Plt Count 196 (182-369) K/mm3 MPV 10.2 (9.4-12.3) fl Neut % (Auto) 59.0 (34.0-71.1) % Lymph % (Auto) 32.7 (19.3-51.7) % Atkinson % (Auto) 7.0 (4.7-12.5) % Eos % (Auto) 0.7 (0.7-5.8) Baso % (Auto) 0.3 (0.1-1.2) % Neut # (Auto) 4.13 (1.56-6.13) K/mm3 Lymph # (Auto) 2.29 (1.18-3.74) K/mm3 Atkinson # (Auto) 0.49 H (0.24-0.36) K/mm3 Eos # (Auto) 0.05 (0.04-0.36) K/mm3 Baso # (Auto) 0.02 (0.01-0.08) K/mm3 PT 10.3 (9.7-12.0) SECONDS INR 0.93 APTT 25.9 (21.7-31.4) SECONDS D-Dimer, Quantitative 0.45 (0.19-0.50) mg/L Puncture Site ABG pH (7.35-7.45) ABG pCO2 (35.0-45.0) mmHg ABG pO2 (80.0-100.0) mmHg ABG HCO3 (22.0-26.0) meq/L ABG O2 Saturation (96.0-97.0) % ABG Base Excess (-2-2.0) Mayur Test A-a Gradient mmHg O2 Delivery Device FiO2 (21.00-100.00) % Sodium 135 L (136-145) mEq/L Potassium 3.4 L (3.5-5.1) mEq/L Chloride 98 (98-107) mEq/L Carbon Dioxide 26 (21-32) mEq/L Anion Gap 14.4 (5-15) BUN 18 (7-18) mg/dL Creatinine 1.1 H (0.55-1.02) mg/dL Est Cr Clr Drug Dosing 44.55 mL/min Estimated GFR (MDRD) 49 (>60) mL/min BUN/Creatinine Ratio 16.4 (14-18) Glucose 119 H (70-99) mg/dL Calcium 9.2 (8.5-10.1) mg/dL Total Bilirubin 0.4 (0.2-1.0) mg/dL AST 19 (15-37) U/L ALT 25 (14-59) U/L Alkaline Phosphatase 52 (46-116) U/L Troponin I < 0.017 (0.00-0.056) ng/mL Total Protein 6.8 (6.4-8.2) g/dl Albumin 3.8 (3.4-5.0) g/dl Globulin 3.0 gm/dL Albumin/Globulin Ratio 1.3 (1-2) Urine Color (Yellow) Urine Appearance (Clear) Urine pH (5.0-8.0) Ur Specific [place] (1.005-1.030) Urine Protein (Negative) Urine Glucose (UA) (Negative) Urine Ketones (Negative) Urine Occult Blood (Negative) Urine Nitrite (Negative) Urine Bilirubin (Negative) Urine Urobilinogen (0.2-1.0) Ur Leukocyte Esterase (Negative) Salicylates (2.8-20) mg/dL Urine Opiates Screen (HJMDCW=405) Ur Buprenorphine Scrn (CUTOFF=10) Ur Oxycodone Screen (PUV1QD=117) Urine Methadone Screen (YAOPPQ=941) Ur Propoxyphene Screen (BVQAWQ=023) Acetaminophen 10 (10-30) ug/mL Ur Barbiturates Screen (NWHCWW=371) Ur Tricyclics Screen (HEFSTS=567) Ur Phencyclidine Scrn (CUTOFF=25) Ur Amphetamine Screen (XWTZAT=316) U Methamphetamines Scrn (WFIHPV=298) U Benzodiazepines Scrn (QMRXOH=775) U Cocaine Metab Screen (GJJBQD=177) U Marijuana (THC) Screen (CUTOFF=50) Influenza Type A RNA (NEGATIVE) RSV RNA (INAAT) (NEGATIVE) Influenza Type B RNA (NEGATIVE) SARS-CoV-2 RNA (MEGHAN) (NEGATIVE) 06/21/21 06/21/21 06/21/21 Range/Units 15:35 15:35 16:21 WBC (3.98-10.04) K/mm3 RBC (3.98-5.22) M/mm3 Hgb (11.2-15.7) gm/dl Hct (34.1-44.9) % MCV (79.4-94.8) fl MCH (25.6-32.2) pg MCHC (32.2-35.5) g/dl RDW Std Deviation (36.4-46.3) fL Plt Count (182-369) K/mm3 MPV (9.4-12.3) fl Neut % (Auto) (34.0-71.1) % Lymph % (Auto) (19.3-51.7) % Atkinson % (Auto) (4.7-12.5) % Eos % (Auto) (0.7-5.8) Baso % (Auto) (0.1-1.2) % Neut # (Auto) (1.56-6.13) K/mm3 Lymph # (Auto) (1.18-3.74) K/mm3 Atkinson # (Auto) (0.24-0.36) K/mm3 Eos # (Auto) (0.04-0.36) K/mm3 Baso # (Auto) (0.01-0.08) K/mm3 PT (9.7-12.0) SECONDS INR APTT (21.7-31.4) SECONDS D-Dimer, Quantitative (0.19-0.50) mg/L Puncture Site ABG pH (7.35-7.45) ABG pCO2 (35.0-45.0) mmHg ABG pO2 (80.0-100.0) mmHg ABG HCO3 (22.0-26.0) meq/L ABG O2 Saturation (96.0-97.0) % ABG Base Excess (-2-2.0) Mayur Test A-a Gradient mmHg O2 Delivery Device FiO2 (21.00-100.00) % Sodium (136-145) mEq/L Potassium (3.5-5.1) mEq/L Chloride (98-107) mEq/L Carbon Dioxide (21-32) mEq/L Anion Gap (5-15) BUN (7-18) mg/dL Creatinine (0.55-1.02) mg/dL Est Cr Clr Drug Dosing mL/min Estimated GFR (MDRD) (>60) mL/min BUN/Creatinine Ratio (14-18) Glucose (70-99) mg/dL Calcium (8.5-10.1) mg/dL Total Bilirubin (0.2-1.0) mg/dL AST (15-37) U/L ALT (14-59) U/L Alkaline Phosphatase (46-116) U/L Troponin I (0.00-0.056) ng/mL Total Protein (6.4-8.2) g/dl Albumin (3.4-5.0) g/dl Globulin gm/dL Albumin/Globulin Ratio (1-2) Urine Color Yellow (Yellow) Urine Appearance Clear (Clear) Urine pH 5.5 (5.0-8.0) Ur Specific [place] 1.010 (1.005-1.030) Urine Protein Negative (Negative) Urine Glucose (UA) Negative (Negative) Urine Ketones Negative (Negative) Urine Occult Blood Negative (Negative) Urine Nitrite Negative (Negative) Urine Bilirubin Negative (Negative) Urine Urobilinogen 0.2 (0.2-1.0) Ur Leukocyte Esterase Negative (Negative) Salicylates 1.4 L (2.8-20) mg/dL Urine Opiates Screen (WCCMQI=693) Ur Buprenorphine Scrn (CUTOFF=10) Ur Oxycodone Screen (ZIY2XD=029) Urine Methadone Screen (GAVJFX=430) Ur Propoxyphene Screen (HZVNSP=842) Acetaminophen (10-30) ug/mL Ur Barbiturates Screen (ILQBQG=235) Ur Tricyclics Screen (WQXSWZ=141) Ur Phencyclidine Scrn (CUTOFF=25) Ur Amphetamine Screen (FCREHW=027) U Methamphetamines Scrn (HQUAMR=389) U Benzodiazepines Scrn (AVTZEB=864) U Cocaine Metab Screen (QJXFMU=915) U Marijuana (THC) Screen (CUTOFF=50) Influenza Type A RNA Negative (NEGATIVE) RSV RNA (INAAT) (NEGATIVE) Influenza Type B RNA Negative (NEGATIVE) SARS-CoV-2 RNA (MEGHAN) Negative (NEGATIVE) 06/21/21 06/21/21 06/21/21 Range/Units 16:21 16:21 16:37 WBC (3.98-10.04) K/mm3 RBC (3.98-5.22) M/mm3 Hgb (11.2-15.7) gm/dl Hct (34.1-44.9) % MCV (79.4-94.8) fl MCH (25.6-32.2) pg MCHC (32.2-35.5) g/dl RDW Std Deviation (36.4-46.3) fL Plt Count (182-369) K/mm3 MPV (9.4-12.3) fl Neut % (Auto) (34.0-71.1) % Lymph % (Auto) (19.3-51.7) % Atkinson % (Auto) (4.7-12.5) % Eos % (Auto) (0.7-5.8) Baso % (Auto) (0.1-1.2) % Neut # (Auto) (1.56-6.13) K/mm3 Lymph # (Auto) (1.18-3.74) K/mm3 Atkinson # (Auto) (0.24-0.36) K/mm3 Eos # (Auto) (0.04-0.36) K/mm3 Baso # (Auto) (0.01-0.08) K/mm3 PT (9.7-12.0) SECONDS INR APTT (21.7-31.4) SECONDS D-Dimer, Quantitative (0.19-0.50) mg/L Puncture Site Rt radial ABG pH 7.34 L (7.35-7.45) ABG pCO2 43.1 (35.0-45.0) mmHg ABG pO2 82.0 (80.0-100.0) mmHg ABG HCO3 22.7 (22.0-26.0) meq/L ABG O2 Saturation 94.3 L (96.0-97.0) % ABG Base Excess -2.5 L (-2-2.0) Mayur Test Positive A-a Gradient 14 mmHg O2 Delivery Device Room air FiO2 21.00 (21.00-100.00) % Sodium (136-145) mEq/L Potassium (3.5-5.1) mEq/L Chloride (98-107) mEq/L Carbon Dioxide (21-32) mEq/L Anion Gap (5-15) BUN (7-18) mg/dL Creatinine (0.55-1.02) mg/dL Est Cr Clr Drug Dosing mL/min Estimated GFR (MDRD) (>60) mL/min BUN/Creatinine Ratio (14-18) Glucose (70-99) mg/dL Calcium (8.5-10.1) mg/dL Total Bilirubin (0.2-1.0) mg/dL AST (15-37) U/L ALT (14-59) U/L Alkaline Phosphatase (46-116) U/L Troponin I (0.00-0.056) ng/mL Total Protein (6.4-8.2) g/dl Albumin (3.4-5.0) g/dl Globulin gm/dL Albumin/Globulin Ratio (1-2) Urine Color (Yellow) Urine Appearance (Clear) Urine pH (5.0-8.0) Ur Specific [place] (1.005-1.030) Urine Protein (Negative) Urine Glucose (UA) (Negative) Urine Ketones (Negative) Urine Occult Blood (Negative) Urine Nitrite (Negative) Urine Bilirubin (Negative) Urine Urobilinogen (0.2-1.0) Ur Leukocyte Esterase (Negative) Salicylates (2.8-20) mg/dL Urine Opiates Screen Presumptive positive H (ZKJLAL=745) Ur Buprenorphine Scrn Negative (CUTOFF=10) Ur Oxycodone Screen Presumptive positive H (FGI5XJ=234) Urine Methadone Screen Negative (CBHTIL=728) Ur Propoxyphene Screen Negative (EWJUEE=680) Acetaminophen (10-30) ug/mL Ur Barbiturates Screen Negative (COFDIG=855) Ur Tricyclics Screen Presumptive positive H (LAITND=180) Ur Phencyclidine Scrn Negative (CUTOFF=25) Ur Amphetamine Screen Negative (FFIGAV=055) U Methamphetamines Scrn Negative (VTPGDS=507) U Benzodiazepines Scrn Negative (BNDOSU=788) U Cocaine Metab Screen Negative (QZLHEP=227) U Marijuana (THC) Screen Negative (CUTOFF=50) Influenza Type A RNA Negative (NEGATIVE) RSV RNA (INAAT) Negative (NEGATIVE) Influenza Type B RNA Negative (NEGATIVE) SARS-CoV-2 RNA (MEGHAN) Negative (NEGATIVE) 06/21/21 Range/Units 19:30 WBC (3.98-10.04) K/mm3 RBC (3.98-5.22) M/mm3 Hgb (11.2-15.7) gm/dl Hct (34.1-44.9) % MCV (79.4-94.8) fl MCH (25.6-32.2) pg MCHC (32.2-35.5) g/dl RDW Std Deviation (36.4-46.3) fL Plt Count (182-369) K/mm3 MPV (9.4-12.3) fl Neut % (Auto) (34.0-71.1) % Lymph % (Auto) (19.3-51.7) % Atkinson % (Auto) (4.7-12.5) % Eos % (Auto) (0.7-5.8) Baso % (Auto) (0.1-1.2) % Neut # (Auto) (1.56-6.13) K/mm3 Lymph # (Auto) (1.18-3.74) K/mm3 Atkinson # (Auto) (0.24-0.36) K/mm3 Eos # (Auto) (0.04-0.36) K/mm3 Baso # (Auto) (0.01-0.08) K/mm3 PT (9.7-12.0) SECONDS INR APTT (21.7-31.4) SECONDS D-Dimer, Quantitative (0.19-0.50) mg/L Puncture Site ABG pH (7.35-7.45) ABG pCO2 (35.0-45.0) mmHg ABG pO2 (80.0-100.0) mmHg ABG HCO3 (22.0-26.0) meq/L ABG O2 Saturation (96.0-97.0) % ABG Base Excess (-2-2.0) Mayur Test A-a Gradient mmHg O2 Delivery Device FiO2 (21.00-100.00) % Sodium (136-145) mEq/L Potassium (3.5-5.1) mEq/L Chloride (98-107) mEq/L Carbon Dioxide (21-32) mEq/L Anion Gap (5-15) BUN (7-18) mg/dL Creatinine (0.55-1.02) mg/dL Est Cr Clr Drug Dosing mL/min Estimated GFR (MDRD) (>60) mL/min BUN/Creatinine Ratio (14-18) Glucose (70-99) mg/dL Calcium (8.5-10.1) mg/dL Total Bilirubin (0.2-1.0) mg/dL AST (15-37) U/L ALT (14-59) U/L Alkaline Phosphatase (46-116) U/L Troponin I (0.00-0.056) ng/mL Total Protein (6.4-8.2) g/dl Albumin (3.4-5.0) g/dl Globulin gm/dL Albumin/Globulin Ratio (1-2) Urine Color (Yellow) Urine Appearance (Clear) Urine pH (5.0-8.0) Ur Specific [place] (1.005-1.030) Urine Protein (Negative) Urine Glucose (UA) (Negative) Urine Ketones (Negative) Urine Occult Blood (Negative) Urine Nitrite (Negative) Urine Bilirubin (Negative) Urine Urobilinogen (0.2-1.0) Ur Leukocyte Esterase (Negative) Salicylates (2.8-20) mg/dL Urine Opiates Screen (KTNSTS=672) Ur Buprenorphine Scrn (CUTOFF=10) Ur Oxycodone Screen (EJP0ZS=006) Urine Methadone Screen (XPCXOK=307) Ur Propoxyphene Screen (SWHGRI=629) Acetaminophen 0 L (10-30) ug/mL Ur Barbiturates Screen (UOTTKZ=441) Ur Tricyclics Screen (XYORBN=661) Ur Phencyclidine Scrn (CUTOFF=25) Ur Amphetamine Screen (PWQEOR=981) U Methamphetamines Scrn (ZMHSMC=379) U Benzodiazepines Scrn (KTVRKE=169) U Cocaine Metab Screen (XDUQJS=114) U Marijuana (THC) Screen (CUTOFF=50) Influenza Type A RNA (NEGATIVE) RSV RNA (INAAT) (NEGATIVE) Influenza Type B RNA (NEGATIVE) SARS-CoV-2 RNA (MEGHAN) (NEGATIVE) Meds: Medications Generic Name Dose Route Start Last Admin Trade Name Freq PRN Reason Stop Dose Admin Lactated Ringer's 1,000 mls @ 150 mls/hr 06/21/21 19:00 06/21/21 19:10 Ringers, Lactated IV 150 mls/hr ASDIRECTED TASHA Administration Sodium Chloride 10 ml 06/21/21 15:28 06/21/21 15:50 Sodium Chloride 0.9% 10 Ml Syringe FLUSH 10 ml ASDIRECTED PRN Administration Keep Vein Open Discontinued Medications Generic Name Dose Route Start Last Admin Trade Name Freq PRN Reason Stop Dose Admin Potassium Chloride 40 meq 06/21/21 18:54 06/21/21 19:10 Potassium Chloride 20 Meq Tab.Er PO 06/21/21 18:55 40 meq ONETIME ONE Administration - Re-Assessments/Exams Free Text/Narrative Re-Assessment/Exam: 06/21/21 20:[address] Ellington for change of shift. I agree with his history and physical examination as documented. The patient's repeat acetaminophen level is 0. Portable chest radiograph reviewed. 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 The cardiac silhouette is within normal limits. No pulmonary vascular congestion. No pleural effusions seen on this AP view. No focal infiltrate. No pneumothorax. A right-sided Port-A-Cath is noted. Formal read per the Radiologist pending. CT of the head without contrast is read by [facility] as "No acute intracranial abnormality. Normal for age." CT of the chest without contrast is read by [facility] as "No acute findings." Plan will be to keep the patient here in the ED until she becomes lucid enough to discharge home. 06/22/21 09:23 I spoke with the patient's paxton Cordova, who is currently in or around [place], but is preparing to come here to collect the patient. He estimates that he will be here sometime around 15:00 this afternoon. We will keep the patient here in the ED in the meantime. I apprised the patient of the above. She is okay with that. We will get her some breakfast. Departure - Departure Time of Disposition: 15:00 Condition: Good - Discharge Information *PRESCRIPTION DRUG MONITORING PROGRAM REVIEWED*: Not Applicable *COPY OF PRESCRIPTION DRUG MONITORING REPORT IN PATIENT KEYLA: Not Applicable Sepsis Event Note (ED) - Focused Exam Vital Signs: Vital Signs Temp Pulse Resp BP Pulse Ox 06/22/21 06:00 35.9 C L 95 16 142/94 H 97 06/22/21 00:00 36.0 C L 73 16 144/72 H 94 L
[2021-06-21] MEDS ORDERED: Potassium Chloride 20 MEQ Tab.ER PO ONE (18:54)
[2021-06-21] MEDS ORDERED: Lactated Ringers 1,000 ML IV SCH (19:00)
--- NOTE | 2021-06-22 08:05 | CT ---
Head CT Technique: Multiple axial sections through the brain were obtained. Intravenous contrast was not utilized. Reconstructed coronal and sagittal images were obtained. Comparison: Prior head CT study of 08/19/20. Findings: Ventricles along with basal cisterns and sulci over the convexities are within normal limits for the patient's age. No abnormal parenchymal densities are seen. No evidence of intracranial hemorrhage is seen. No midline shift or mass-effect is seen. Bone window settings were reviewed. Visualized mastoid sinuses and paranasal sinuses show nothing acute. No acute calvarial abnormality is appreciated. Impression: 1. Nothing acute is seen on noncontrast head CT study. 2. Please correlate if patient's symptoms warrant further evaluation by MRI. Diagnostic code #1 I agree with preliminary report from 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
--- NOTE | 2021-06-22 08:09 | CR ---
Chest: Portable view of the chest was obtained. Comparison: No prior chest x-ray is available, subsequent chest CT was utilized. Findings: Right-sided infusion port is seen. Heart size and mediastinum are within normal limits. Lungs are clear with no acute parenchymal change. Two surgical clips are seen within the left axillary region. No discrete osseous abnormality is appreciated. Impression: 1. Right-sided infusion catheter. Two surgical clips within the left axillary region. 2. Nothing acute is otherwise seen on portable chest x-ray. Diagnostic code #2
--- NOTE | 2021-06-22 08:23 | CT ---
CT chest Technique: Multiple axial sections were obtained from above the lung apices inferiorly through the lung bases. Intravenous contrast was not utilized. Reconstructed coronal and sagittal images were obtained through the chest. Comparison: No prior chest CT is available, prior chest x-ray performed earlier on the same day is available. Findings: Right-sided infusion port is seen which terminates within the superior vena cava. Thoracic aorta shows mild atherosclerotic calcification with no aneurysm being seen. No retroperitoneal adenopathy is seen. Surgical clips are noted within the left axillary region. Mediastinum shows small lymph nodes which are felt to be within normal limits. Small amount of fluid is seen within the esophagus. Visualized upper abdominal structures show no discrete abnormality. Lung window settings were reviewed. Minimal density is seen within the right middle lobe as well as anteriorly within the left lower lung which most likely represent areas of scarring. No acute parenchymal finding is seen within either portions of the chest. Bone window settings were reviewed which show mild scoliosis with no acute osseous abnormality. Impression: 1. Findings as described above. 2. Nothing acute is appreciated on CT study of the chest. Diagnostic code #2 I mostly agree with preliminary report from [facility], finalized on 06/21/21, 9:29 PM [employer], code 2
== END 2021-06-22 12:54 | disposition home or self-care (01) ==
LOC: JD.ED 15:18
DX: R41.82 Altered mental status, unspecified (principal); I10 Essential (primary) hypertension; E78.00 Pure hypercholesterolemia, unspecified; E66.9 Obesity, unspecified; Z68.33 Body mass index [BMI] 33.0-33.9, adult; Z88.0 Allergy status to penicillin; Z88.8 Allergy status to other drugs, medicaments and biological substances; Z88.2 Allergy status to sulfonamides; Z20.822 Contact with and (suspected) exposure to COVID-19; Z79.899 Other long term (current) drug therapy
CPT/HCPCS: 0240U; 0241U; 36415; 36600; 70450; 71045; 71250; 80053; 80143; 80179; 80306; 81003; 82803; 84484; 85025; 85379; 85610; 85730; 93005; 99285; A9270; J7120; 93010

== ENCOUNTER 2021-08-12 18:27 | Emergency (ER) | payer MEDICARE | END 2021-08-13 00:14 | disposition home or self-care (01) | LOC: JD.ED 18:27 | DX: R06.89 Other abnormalities of breathing (principal); R09.02 Hypoxemia; E78.00 Pure hypercholesterolemia, unspecified; I10 Essential (primary) hypertension; E66.9 Obesity, unspecified; Z68.31 Body mass index [BMI] 31.0-31.9, adult; Z88.0 Allergy status to penicillin; Z88.1 Allergy status to other antibiotic agents; Z88.2 Allergy status to sulfonamides; Z79.899 Other long term (current) drug therapy; Z20.822 Contact with and (suspected) exposure to COVID-19 | CPT/HCPCS: 36415; 36600; 71046; 71046-26; 80048; 82803; 85379; 99284-25; 99285; U0002 ==

== ENCOUNTER 2021-11-01 14:00 | Emergency (ER) | payer MEDICARE ==
[2021-11-01] MEDS ORDERED: Lidocaine 4% 1 each Patch TOP PRN (15:05)
== END 2021-11-01 15:38 | disposition home or self-care (01) ==
LOC: JD.ED 14:00
DX: R25.2 Cramp and spasm (principal); E78.00 Pure hypercholesterolemia, unspecified; I10 Essential (primary) hypertension; E66.9 Obesity, unspecified; Z68.32 Body mass index [BMI] 32.0-32.9, adult; Z88.0 Allergy status to penicillin; Z88.8 Allergy status to other drugs, medicaments and biological substances; Z88.2 Allergy status to sulfonamides; Z79.899 Other long term (current) drug therapy
CPT/HCPCS: 99283